=== PATIENT | female | born 1995 | race Two or more races ===

== ENCOUNTER 2019-09-04 20:54 | Emergency (ER) | payer SELFPAY ==
--- NOTE | ~2019-09-04 | XR_ITS ---
EXAMINATION: XR chest 2V 09/04/2019 22:06 INDICATION: Productive cough and fever PROCEDURE: 2 view chest COMPARISON: No prior studies for comparison. FINDINGS: The lungs are clear. The cardiomediastinal silhouette is within normal limits. There are no pleural effusions. There is no pneumothorax suspected. IMPRESSION: 1: NO ACUTE CARDIOPULMONARY DISEASE. Reviewed, dictated and finalized at location A.
[2019-09-04 20:56] VITALS: BP 123/73; PULSE 75; RESP 18; TEMP 36.8; O2SAT 99
--- NOTE | 2019-09-04 22:33 | ED.GENADULT ---
HPI - General Adult General Chief complaint: Upper Respiratory Infection Stated complaint: cough, fever Time Seen by Provider: 09/04/19 22:30 Source: patient and family Mode of arrival: ambulatory Limitations: no limitations History of Present Illness HPI narrative: Patient is a 24-year-old female with a history of asthma who presents for evaluation of cough, sinus congestion. Patient reports she has had intermittent upper respiratory infections over the past 3 months. She states that is been very hard for her to get well in between this, and most recently was diagnosed with influenza B 3 weeks ago. Patient has had a productive cough over the past week, sinus congestion. She denies fever or shortness of breath. Patient has been using her albuterol inhaler as prescribed. Patient continues to smoke cigarettes and use E cigarettes/vaping. Patient's mother states that she has been vaping numerous times a day. Patient denies any chest pain, no leg pain or swelling. Patient was was recently seen by her primary care provider, and advised that these were viral illnesses, no recent antibiotics. Related Data Allergies Allergy/AdvReac Type Severity Reaction Status Date / Time Penicillins Allergy Unknown UNKNOWN Verified 09/04/19 20:55 REACTION latex Allergy Hives Verified 09/04/19 20:55 Review of Systems Review of Systems: Narrative: CONSTITUTIONAL: Denies fever, chills, or sweats. ENT: Reports rhinorrhea, congestion, denies sore throat or ear pain CARDIOVASCULAR: Denies chest pain, palpitations, or edema. RESPIRATORY: Reports cough, denies shortness of breath GASTROINTESTINAL: Denies abdominal pain, nausea, vomiting, or diarrhea. GENITOURINARY: Denies dysuria or hematuria. SKIN: Denies rash or itching. MUSCULOSKELETAL: Denies back pain, joint pain, or myalgia. NEUROLOGIC: Denies headache, numbness, or weakness. PMFSH Past Medical History Medical History (Updated 09/04/19 @ 23:04 by Aubrie Heredia MD) Asthma Social History Social History (Updated 09/04/19 @ 23:03 by Aubrie Heredia MD) Smoking status: Current every day smoker Tobacco type: e-cigarettes Second hand tobacco smoke exposure: Yes Alcohol intake: never Substance use: never Living arrangements: with family Gender identity (if verbalized by the patient): Female Exam Narrative: Exam Narrative: GENERAL: Well-appearing, well-nourished, and in no acute distress. HEAD: Normocephalic, atraumatic. EYES: PERRLA and EOMI. ENT: Nares clear, no rhinorrhea or epistaxis. Mucous membranes moist. NECK: Supple. CHEST: Clear to auscultation. No respiratory distress. No wheezing. HEART: Regular rate and rhythm. No murmur heard. Normal peripheral pulses. ABDOMEN: Soft, nontender, nondistended, normal active bowel sounds. EXTREMITIES: Normal range of motion. No edema. SKIN: Warm, dry, no rash. NEURO: No focal deficits. Alert and oriented x3 Course Course Emergency Course: Patient presented for evaluation of continued cough, sinus congestion. Influenza and strep swabs are negative. Patient with abnormality to right middle lobe, possible early consolidation and air bronchograms are present. Will treat with azithromycin, also patient will be given prednisone and albuterol inhaler prescription. Patient advised the importance of stopping e-cigarette/vaping as this can further damage lung tissue and may lead to her symptoms in the first place. Patient seems to be in denial of this, stating that our literature is not correct and she is never heard about the negative effects of E cigarettes. I find this very hard to believe as does her patient's mother. Patient was discharged home in stable condition. Vital Signs Vital signs: Vital Signs Temperature 36.8 C 09/04/19 20:56 Pulse Rate 18 L 09/04/19 20:56 Respiratory Rate 18 09/04/19 20:56 Blood Pressure 123/73 09/04/19 20:56 Pulse Oximetry 99 09/04/19 20:56 Temperature 36.8 C 09/04/19 20:
[2019-09-04 23:33] VITALS: BP 122/82; PULSE 78; RESP 20; O2SAT 100
== END 2019-09-04 23:36 | disposition home or self-care (01) ==
PROVIDERS: Emergency Provider Emergency Medicine
DX: J45.909 Unspecified asthma, uncomplicated (principal); J06.9 Acute upper respiratory infection, unspecified; F17.290 Nicotine dependence, other tobacco product, uncomplicated
CPT/HCPCS: 71046; 87081; 87804; 87880; 99283

== ENCOUNTER 2022-08-26 01:22 | Emergency (ER) | payer OTHER, SELFPAY ==
--- NOTE | ~2022-08-26 | XR_ITS ---
Clinical Indication: Upper respiratory infection PA and lateral views of the chest: Comparison: 09/04/2019 Findings: The lungs are clear, without evidence of focal consolidation or pleural effusion. Cardiome diastinal silhouette is within normal limits. Bones and soft tissues are unremarkable. Impression: Normal chest. Reviewed, dictated and finalized at [facility]. [employer] Impression: Normal chest.
--- NOTE | ~2022-08-26 | CT_ITS ---
CT scan of the Neck Technique: 2.5 mm axial scans were obtained through the neck after intravenous administration of 75 c c Omnipaque 350. Coronal and sagittal reconstructions of the neck were obtained. Dose reduction techn ique was used on this scan by utilizing automated exposure control and iterative reconstruction techn ique. The dose-length product (DLP) was 420.55 mGy-cm. Clinical History: Sore throat, leukocytosis Findings: There is no evidence of any significant cervical lymphadenopathy. Several small, nonenlarged jugulo- digastric and posterior cervical lymph nodes are noted bilaterally. Parapharyngeal spaces appear norm al bilaterally. The parotid and submandibular glands appear normal. There is probable mild prominence/hypertrophy of the adenoids. [place] tonsils are unremarkable. The pharyngeal mucosal spaces appear normal. No soft tissue masses are seen in the neck. The thyroid gland appears normal. Images of the lung apices reveal no abnormalities. Impression: Mild prominence/hypertrophy of the adenoids. Correlate for tonsillitis. No abscess identified. Reviewed, dictated and finalized at location . E WINDER Impression: Mild prominence/hypertrophy of the adenoids. Correlate for tonsillitis. No absc ess identified.
[2022-08-26 01:29] VITALS: BP 111/80; PULSE 124; RESP 18; TEMP 36.4; O2SAT 98
--- NOTE | 2022-08-26 02:46 | ED.URI ---
HPI - URI/Sore Throat General Chief Complaint: Upper Respiratory Infection Stated Complaint: URI, N/V/D Time Seen by Provider: 08/26/22 02:23 Source: patient and RN notes reviewed Mode of arrival: ambulatory Limitations: no limitations History of Present Illness HPI Narrative: This is a 27 year old female who presents for evaluation of sickness. She states she developed sore throat, body aches, congestion yesterday. She also had nausea and vomiting. She had had a frontal headache and neck pain. She was evaluated in clinic today and she had negative covid, flu and strep. She has not taken any medication for her pain. Her child has also been sick Related Data Allergies Allergy/AdvReac Type Severity Reaction Status Date / Time Penicillins Allergy Unknown UNKNOWN Verified 08/26/22 04:42 REACTION latex Allergy Hives Verified 08/26/22 04:42 Review of Systems Constitutional: Constitutional: Reports chills, Reports fatigue, Reports fever(s) and Denies weakness ENT: Reports nasal congestion and Reports sore throat Cardiovascular: Cardiovascular: Denies syncope, Denies rapid heart rate, Denies irregular heart rhythm, Denies leg edema and Denies dyspnea Respiratory: Respiratory: Reports chest congestion, Reports cough, Denies hemoptysis, Denies excessive phlegm production and Denies dyspnea Gastrointestinal: Gastrointestinal: Denies abdominal pain, Denies hematochezia, Reports diarrhea, Reports nausea and Reports vomiting Genitourinary: Genitourinary: Denies hematuria and Denies dysuria Musculoskeletal: Musculoskeletal: Reports myalgias, Denies joint swelling, Denies loss of height and Denies muscle weakness Neurologic: Denies syncope, Reports headache(s), Denies focal weakness and Denies weakness PMFSH Past Medical History Medical History Asthma Social History Social History Smoking status: Current every day smoker Tobacco type: e-cigarettes/vaping Second hand tobacco smoke exposure: Yes Alcohol intake: never Substance use: never Living arrangements: with family Gender identity (if verbalized by the patient): Female Exam Const: General: no acute distress, alert and ill appearing (appears to not feel well, but nontoxic) Nutritional Appearance: well nourished Orientation/consciousness: patient oriented x3 HENMT: Head: normal to inspection Ears: external ears normal and TM's normal bilaterally Face and sinus: normal facial exam Mouth: Yes Normal oral and palatal mucosa present and Yes Abnormal oral and palatal mucosa present erythematous Teeth and gingiva: dentition normal Throat: posterior oropharynx normal and uvula midline Eyes: Conjunctivae: conjunctivae normal Pupils: Equal, round and reactive pupils present EOM: EOMs intact bilaterally Neck: Neck: normal visual inspection, no lymphadenopathy and no meningeal signs Chest: Chest palpation & inspection: normal inspection of the chest Resp: Effort & Inspection: normal respiratory effort Auscultation: clear to auscultation bilaterally Cardio: Rate: tachycardic Rhythm: regular rhythm Heart sounds: no murmurs GI: GI Palp: Yes Soft to palpation, No Tenderness to palpation present (GI), No Guarding due to palpation present (GI) and No Rigid due to palpation Auscultation: normal bowel sounds Back/Spine/Pelvis: Back: no CVA tenderness Skin: General skin exam: normal color Rashes: no rashes Wounds: no wounds Neuro: General: patient oriented x3, moves all extremities and CN's II-XI intact bilaterally Cranial nerves: Yes Nystagmus not present Speech: normal speech Gait exam (Neuro): Normal gait present Extrem: General: normal to inspection Psych: Mental Status: mental status grossly normal Affect: normal affect Attitude: cooperative Course Reevaluation(s) Reevaluation #1: PAtient states that she feels much better. Her
[2022-08-26] MEDS: SODIUM CHLORIDE 0.9% IV 1,000 ML 999 ML IV CONT ×2 (03:17→03:40)
[2022-08-26] MEDS: KETOROLAC 30 MG/ML VIAL (*BKC) IV PUSH (03:18)
[2022-08-26] MEDS: METOCLOPRAMIDE HCL INJ 10 MG/2 ML VIAL IV PUSH (03:18)
[2022-08-26 03:22] LABS: Basophils Absolute Auto 0.1 K/mm3 (0.0-0.1); Basophils Percent Auto 0.4 % (0.2-1.2); Eosinophils Absolute Auto 0.1 K/mm3 (0-0.3); Eosinophils Percent Auto 0.3 % (0-4.4); Hematocrit 40.2 % (37.0-47.0); Hemoglobin 13.5 g/dL (12.0-15.0); Immature Granulocyte Absolute 0.06 K/mm3 (0.00-0.031); Immature Granulocyte Percent A 0.3 % (0-0.5); Lymphocytes Absolute Auto 1.93 K/mm3 (0.9-3.2); Lymphocytes Percent Auto 10.1 % (18.3-44.2); Mean Corpuscular HGB Conc 33.6 g/dl (32-36); Mean Corpuscular Hemoglobin 29.6 pg (26-34); Mean Corpuscular Volume 88.2 fl (80-100); Mean Platelet Volume 9.8 fl (7.4-10.4); Monocytes Absolute Auto 1.8 K/mm3 (0.1-0.6); Monocytes Percent Auto 9.2 % (2.6-8.5); Neutrophils Absolute Auto 15.2 K/mm3 (1.3-6.7); Neutrophils Percent Auto 79.7 % (45.5-73.1); Platelet Count Result 265 k/mm3 (150-375); Red Blood Count 4.56 M/mm3 (4.2-5.4); Red Cell Distribution Width 13.2 % (11.5-14.5); White Blood Count 19.1 K/mm3 (4.5-10.0)
[2022-08-26] MEDS: diphenhydrAMINE HCl INJ 50 MG/ML VIAL 25 MG IV PUSH (03:31)
[2022-08-26 03:32] LABS: Alanine Aminotransferase 21 U/L (6-35); Albumin Level 5.1 g/dL (3.5-5.1); Alkaline Phosphatase 118 U/L (38-126); Anion Gap 15 mmol/L (8-16); Aspartate Amino Transferase 32 U/L (14-36); Bilirubin,Total 0.7 mg/dL (0.2-1.3); Blood Urea Nitrogen 8 mg/dL (7-17); Calcium 9.5 mg/dL (8.4-10.2); Carbon Dioxide 18 mmol/L (22-30); Chloride 99 mmol/L (98-107); Estimated CRCL calculation 116 ml/min; Estimated Glomerular Filt Rate > 60; Glucose 87 mg/dL (65-110); Lactic Acid Reflex 0.7 mmol/L (0.7-2.0); Magnesium 1.7 mg/dL (1.6-2.3); Potassium 3.7 mmol/L (3.4-5.0); Sodium 132 mmol/L (137-145)
[2022-08-26 03:50] LABS: Appearance Urine Clear (Clear); Bacteria Urine Rare /hpf; Bilirubin Urine Negative (Negative); Blood Urine Negative (Negative); Color Urine Yellow (Yellow); Glucose Urine UA Negative (Negative); Ketones Urine 4+ mg/dL (Negative); Leukocyte Esterase Ur Negative LEU/UL (Negative); Nitrate Urine Negative (Negative); Protein Urine 1+ mg/dL (Negative); RBC Urine 0-2 /hpf (0-2); Specific Grav Ur 1.028 (1.001-1.035); Squamous Epithelial Cell Urine Few /hpf (Few); WBC Urine 0-5 /hpf; pH Urine 5.5 (5.0-9.0)
[2022-08-26 03:57] LABS: Strep Group A RT-PCR NOT DETECTED (Negative)
[2022-08-26 03:57] LABS: Add Urine Microscopic? YES
[2022-08-26 04:08] LABS: Influenza A QL RT-PCR Negative (Negative); Influenza B QL RT-PCR Negative (Negative); RSV RNA, RT-PCR Negative (Negative); SARS-CoV-2 RNA PCR Negative
[2022-08-26 04:10] LABS: Monoscreen Negative (Negative); Negative Monotest Control Negative (Negative); Positive Monotest Control Positive (Positive)
[2022-08-26 04:57] VITALS: BP 99/67; PULSE 94; RESP 16; O2SAT 100
[2022-08-26 06:47] VITALS: BP 95/65; PULSE 85; RESP 16; O2SAT 100
== END 2022-08-26 08:09 | disposition home or self-care (01) ==
PROVIDERS: Emergency Provider General Practice
DX: J02.9 Acute pharyngitis, unspecified (principal); E86.0 Dehydration; J45.909 Unspecified asthma, uncomplicated; Z79.51 Long term (current) use of inhaled steroids; Z20.822 Contact with and (suspected) exposure to COVID-19; F17.290 Nicotine dependence, other tobacco product, uncomplicated
CPT/HCPCS: 36415; 70491; 71046; 80053; 81001; 81025; 83605; 83735; 85025; 86308; 87637; 87651; 96361; 96374; 96375; 99284; J1200; J1885; J2765; J7030; Q9967

== ENCOUNTER 2023-06-26 13:47 | Emergency (ER) | payer OTHER, SELFPAY ==
[2023-06-26 13:54] VITALS: BP 103/52; PULSE 90; RESP 18; TEMP 36.7; O2SAT 99
[2023-06-26 14:46] LABS: Influenza A QL RT-PCR Negative (Negative); Influenza B QL RT-PCR Negative (Negative); RSV RNA, RT-PCR Negative (Negative); SARS-CoV-2 RNA PCR Negative (Negative)
--- NOTE | 2023-06-26 15:06 | ED.GENADULT ---
HPI - General Adult General Chief complaint: Upper Respiratory Infection Stated complaint: uri Time Seen by Provider: 06/26/23 14:45 History of Present Illness HPI narrative: 28-year-old female presenting to the emergency department for evaluation of sore throat cough is been ongoing for the last few days. Patient does have sick contacts at home. Patient reports he did have recent testing for COVID and was negative. Patient denies any chest pain or shortness of breath but does report sore throat. Patient denies any difficulty breathing or swelling. Patient appears to be in no distress in the ED. Related Data Allergies Allergy/AdvReac Type Severity Reaction Status Date / Time Penicillins Allergy Unknown UNKNOWN Verified 08/26/22 04:42 REACTION latex Allergy Hives Verified 08/26/22 04:42 Review of Systems Review of Systems: All systems reviewed & are unremarkable except as noted in HPI and below PMFSH Past Medical History Medical History Asthma Social History Social History Smoking status: Current every day smoker Tobacco type: e-cigarettes/vaping Second hand tobacco smoke exposure: Yes Alcohol intake: never Substance use: never Living arrangements: with family Gender identity (if verbalized by the patient): Female Exam Narrative: APPEARANCE: Well appearing, no pain, no distress, well-nourished. HEAD: normocephalic, atraumatic. EYES: PERRLA/EOMI, conjunctivae clear. NOSE: Normal no drainage EARS:TMS clear with good light reflex. THROAT: Erythema posterior pharynx with no swelling or deformity NECK: Supple. No adenopathy, no masses. RESPIRATORY: Airway patent, respirations nonlabored. Clear to auscultation bilaterally, no rales, rhonchi, wheezing. CARDIOVASCULAR: Regular rate and rhythm without murmurs rubs or gallops. ABDOMINAL: Soft, nontender, nondistended, normal bowel sounds MUSCULOSKELETAL: Moves all extremities. Strength/ROM intact, No edema, No calf tenderness. NEURO: Alert. Cranial nerves II through XII intact. Course Course Emergency Course: 28- year-old female presenting to the emergency department for evaluation of sore throat. Patient was negative for RSV COVID influenza and strep. Patient was obtained results of her workup. Patient was advised on symptomatic treatment for home. All questions concerns were addressed patient was well-appearing at time of discharge. Vital Signs Vital signs: Vital Signs Temperature 98.1 F 06/26/23 13:54 Pulse Rate 90 06/26/23 13:54 Respiratory Rate 18 06/26/23 13:54 Blood Pressure 103/52 L 06/26/23 13:54 Pulse Oximetry 99 06/26/23 13:54 Temperature 98.1 F 06/26/23 13:54 Pulse Rate 90 06/26/23 13:54 Respiratory Rate 18 06/26/23 13:54 Blood Pressure 103/52 L 06/26/23 13:54 Pulse Oximetry 99 06/26/23 13:54 Oxygen Delivery Room Air 06/26/23 14:22 Medical Decision Making Vital Signs Vital Signs: Vital Signs Temperature 98.1 F 06/26/23 13:54 Pulse Rate 90 06/26/23 13:54 Respiratory Rate 18 06/26/23 13:54 Blood Pressure 103/52 L 06/26/23 13:54 Pulse Oximetry 99 06/26/23 13:54 Temperature 98.1 F 06/26/23 13:54 Pulse Rate 90 06/26/23 13:54 Respiratory Rate 18 06/26/23 13:54 Blood Pressure 103/52 L 06/26/23 13:54 Pulse Oximetry 99 06/26/23 13:54 Oxygen Delivery Room Air 06/26/23 14:22 Lab Data Lab results reviewed: Yes I reviewed the patient's lab results. Labs: Lab Results 06/26/23 06/26/23 Range/Units 14:02 15:12 Influenza A (RT-PCR) Negative (Negative) Influenza B (RT-PCR) Negative (Negative) RSV (RT-PCR) Negative (Negative) SARS-CoV-2 RNA (RT-PCR) Negative (Negative) Group A Strep (PCR) Not detected (Negative) Discharge Plan Discharge Clinical Impression: Upper respiratory infection, Pharyngiti
[2023-06-26 15:48] LABS: Strep Group A RT-PCR NOT DETECTED (Negative)
== END 2023-06-26 15:58 | disposition home or self-care (01) ==
PROVIDERS: Emergency Provider Emergency Medicine
DX: J06.9 Acute upper respiratory infection, unspecified (principal); J02.9 Acute pharyngitis, unspecified; Z20.822 Contact with and (suspected) exposure to COVID-19; J45.909 Unspecified asthma, uncomplicated; F17.290 Nicotine dependence, other tobacco product, uncomplicated
CPT/HCPCS: 87637; 87651; 99283

== ENCOUNTER 2024-11-09 07:24 | Emergency (ER) | payer OTHER, SELFPAY ==
--- NOTE | ~2024-11-09 | CT_ITS ---
EXAMINATION: CT abdomen pelvis w con DATE: 11/09/2024 08:21 INDICATION: Epigastric and right upper quadrant pain TECHNIQUE: Computed tomography (CT) of the abdomen and pelvis was performed with 100 cc Omnipaque 350 intravenous contrast. The dose-length product was 170.77 mGy-cm. Automated exposure control and iter ative reconstruction technique were employed. COMPARISON: None. FINDINGS: Lung bases unremarkable. No significant pleural or pericardial effusion. Heart size normal. The liver, spleen, pancreas, adrenal glands and kidneys are unremarkable. Gallbladder is contracted. Nonobstructive bowel gas pattern. Small amount of free fluid in the pelvis. There are mildly promine nt parametrial vessels within surrounding the uterus, suspicious for pelvic congestion syndrome. No f ree air. No acute bone or joint abnormality. No focal lytic or blastic lesions. IMPRESSION: 1. Dilated parametrial vessels, suspicious for pelvic congestion syndrome. Reviewed, dictated and finalized at location A.
--- NOTE | ~2024-11-09 | US_ITS ---
US abdomen limited INDICATION: Epigastric and right upper quadrant pain PROCEDURE: Realtime right upper abdominal ultrasound. COMPARISON: No prior studies for comparison. FINDINGS: The pancreas is normal without focal mass or pancreatic ductal dilation. Liver echotexture is normal without focal mass or intrahepatic biliary dilatation. There is normal directional flow i n the portal vein. The gallbladder is normal without stones, gallbladder wall thickening or pericholecystic fluid. Comm on bile duct measures 2 mm. No sonographic Campos's sign. IMPRESSION: 1: Normal limited abdominal ultrasound. Reviewed, dictated and finalized at location A.
--- OUTSIDE RECORDS SUMMARY | 2024-11-09 07:28 | XMS_ITS | Clinical Summary ---
Author Organization [facility] Address [address] [place] [address] Care Team Providers Care Condenser Cleaner Name Role Phone Bonifacio Sims MD Unavailable Ethan De Jesus MD Primary Care Provider [phone] Allergies Active Allergy Reactions Criticality Noted Date Comments Latex Itching,Rash Medium 06/23/2017 Mushroom Anaphylaxis,Hives High 06/29/2013 ALL MUSHROOM TYPES Penicillins Medications albuterol HFA (PROVENTIL HFA,VENTOLIN HFA,PROAIR HFA) 90 mcg/actuation inhaler Inhale 2 puffs every 4 (four) hours as needed for wheezing. 1 Inhaler 06/11/20 18 Active vitamin ferrous fumarate-folic 28 mg iron- 800 mcg tablet 28 mg iron-800 mcg tablet TAKE 1 TABLET BY MOUTH NIGHTLY Active busPIRone (BUSPAR) 10 mg tablet buspirone 10 mg tablet Active compress.stocking, knee,reg,med miscIndications:Or thostatic Hypotension,ICD 10 I95.1 WEAR WHILE UP AND MOBILE; REMOVE AT BED TIME 1 each 3 11/08/19 22 Active docusate sodium (COLACE) 100 mg capsuleIndications :constipation,Stoo l Softener Take 1 capsule (100 mg total) by mouth 2 (two) times a day as needed for constipation 30 capsule 1 02/06/20 22 Active ibuprofen (ADVIL,MOTRIN) 600 mg tabletIndications: Cramps Take 1 tablet (600 mg total) by mouth every 6 (six) hours as needed for pain 30 tablet 1 02/06/20 22 Active ondansetron ODT (ZOFRAN-ODT) 4 mg disintegrating tablet Take 1 tablet (4 mg total) by mouth every 8 (eight) hours as needed for nausea or vomiting 10 tablet 06/22/20 22 Active butalbital-acetami nophen-caffeine (ESGIC) 50-325-40 mg per tabletIndications: Unilateral headache Take 1 tablet by mouth every 6 (six) hours as needed for headaches Collaborating physician Deandre Scott MD 12 tablet 07/14/19 25 Active methocarbamoL (ROBAXIN) 500 mg tabletIndications: Cervical radiculopathy Take 1 tablet (500 mg total) by mouth 3 (three) times a day Take as directed to relax muscles. Collaborating physician Deandre Scott MD 20 tablet 07/14/19 25 Active naproxen (NAPROSYN) 375 mg tabletIndications: Unilateral headache,Cervical radiculopathy Take 1 tablet (375 mg total) by mouth 2 (two) times a day with meals Take as directed to treat headache and neck pain. Collaborating physician Deandre Scott MD 20 tablet 07/14/19 25 Active Active Problems Problem Noted Date Diagnosed Date Laceration of skin of thumb 07/14/2024 Unilateral headache 07/14/2024 Cervical radiculopathy 07/14/2024 Orthostatic hypotension 11/07/2021 Localized edema 11/07/2021 Muscle strain of right shoulder region 9 Immunizations Immunization Administration Dates Next Due Tdap 07/14/2024() Surgical History Surgery Date Site/Laterality Comments NO PAST SURGERIES TONSILECTOMY, ADENOIDECTOMY, BILATERAL MYRINGOTOMY AND TUBES Medical History Medical History Date Comments Migraine Asthma Covid-19 twice Family History Medical History Relation Name Comments Hypertension Father No Known Problems Maternal Grandfather No Known Problems Maternal Grandmother Diabetes Mother No Known Problems Paternal Grandfather No Known Problems Paternal Grandmother Relation Name Status Comments Father Maternal Grandfather Maternal Grandmother Mother Paternal Grandfather Paternal Grandmother Social History Tobacco Use Types Packs/Day Years Used Date Smoking Tobacco: Former Smokeless Tobacco: Never Tobacco Cessation:Counseling Given: Not Answered Comments:e cig Alcohol Use Standard Drinks/Week Comments Not Currently 0 (1 standard drink = 0.6 oz pur e alcohol) socially AUDIT-C Answer Date Recorded Q1: How often do you have a drink containing alcohol? Never 02/03/2022 Q2: How many drinks containi ng alcohol do you have on a typical day when you are drinking? Patient does not drink Q3: How often do you have si x or more drinks on one occasion? Never 02/03/2022 Personal Safety Answer Date Recorded Have you ever been in or are you currently in a harmful physical or emotional relationship or is someone making you feel afraid or unsafe? Denies 07/14/2024 Comments No Sex and Gender Information Value Date Recorded Sex Assigned at Not on file Legal Sex Female 6:46 PM TAP PULLER Gender Identity Not on file Sexual Orientation Not on file Obstetrics History Para Term AB IAB SAB Ectopic Multiple Livin g Live Births 3 1 1 2 0 1 1 Date Outcome GA Total Labor Labor/2nd/3rd Weight Sex Type Anes PTL Cinda A1 A5 Name Clin AB AB 2021 Term 40w 6d 1h 01m 0h 12m/0h 40m/0h 09m 3.356 kg (7 lb 6.4 oz) F Vag-S pont Local N Livin g 8 9 ADDISON ,GIRL DIOR montgomery, Bonifacio mitchell MD Complications:None Delivery Location:[facility] Last Filed Vital Signs Vital Sign Reading Time Taken Comments Blood Pressure 102/63 07/14/2024 10:06 AM TAP PULLER Pulse 62 07/14/2024 10:06 AM TAP PULLER Temperature 36.6 C (97.9 F) 07/14/2024 10:06 AM TAP PULLER Respiratory Rate 16 07/14/2024 7:53 AM TAP PULLER Oxygen Saturation 100% 07/14/2024 10:06 AM TAP PULLER Inhaled Oxygen Concentration - - Weight 52.2 kg (115 lb) 07/14/2024 7:53 AM TAP PULLER Height 172.7 cm (5' 8 ) 07/14/2024 7:53 AM TAP PULLER Body Mass Index 17.49 07/14/2024 7:53 AM TAP PULLER Plan of Treatment Health Maintenance Due Date Last Done Comments Cervical Cancer Screening 1995 Depression Screening 1995 Hepatitis C Screening 1995 Varicella Vaccines (2 of 2 - 2-dose childhood series) 1999 08/02/1996 Regular Well Visit/Exam 18-64 2013 Pneumococcal vaccine <65 (1 of 2 - PCV) 2014 DTaP/Tdap/Td Vaccine (7 - Td or Tdap) 11/25/2016 11/25/2006, 12/27/1999, 10/14/1996, Additional history exists Influenza Vaccine (#1) 2024 Hepatitis B Screening Completed 02/15/1996 , 1995, 1995 HPV Vaccines Completed 04/20/2012, 04/30, 03/18/2010 Insurance [facility] IDPA IDPA Advance Directives For more information, please contact: [phone] * Full Code (Latest Code Status on File) Date Activated Date Inactivated Comments 02/04/2022 5:58 AM 02/06/2022 8:32 PM * Full Code Date Activated Date Inactivated Comments 02/03/2022 6:06 AM 02/04/2022 5:58 AM Full CPR in ca se of cardiopulmonary arrest Care Teams Condenser Cleaner Relationship Specialty Start Date End Date Ethan De Jesus MD [address] [place] [address] [address] [place] [address] PCP - General Family Medicine 07/14/24 Bonifacio Sims MD [address] [place] [address] [address] [place] [address] Corporate Consultant Obstetrics and Gynecology 02/05/22
--- OUTSIDE RECORDS SUMMARY | 2024-11-09 07:28 | XMS_ITS | Clinical Summary ---
Author Organization [facility] Address [address] [place] [address] Phone Care Team Providers Care [employer] Biology Teacher Name Role Phone Unavailable Primary Care Provider Unavailabl e Allergies Active Allergy Reactions Criticality Noted Date Comments Latex Rash Low 06/10/2019 Penicillins Swelling Low 06/10/2019 Medications estradiol cypionate (DEPO-ESTRADIOL IM) Inject by intramuscular injection. Active nitrofurantoin macrocrystal (MACRODANTIN) 100 mg Capsule Take 100 mg by mouth 4 times daily with meals and at bedtime. Active traZODone (DESYREL) 100 mg tablet Take 100 mg by mouth daily at bedtime. Active busPIRone (BUSPAR) 10 mg tablet Take 10 mg by mouth 3 times daily. Active hydrOXYzine HCL (ATARAX) 25 mg tablet Take 25 mg by mouth 2 times daily. Active polyethylene glycol 3350 (MIRALAX) 17 gram/dose Powder Take 1 Scoop (17 Grams) by mouth daily. Dissolve in 8 ounces of fluid and drink entire liquid 527 Gram 07/28/19 24 Active simethicone 80 mg Tablet, Chewable Take 1 Tablet (80 mg) by mouth every 6 hours as needed for Gas. 30 Tablet 07/28/19 24 Active Social History Tobacco Use Types Packs/Day Years Used Date Smoking Tobacco: Every Day Smokeless Tobacco: Never Alcohol Use Standard Drinks/Week Comments Yes 0 (1 standard drink = 0.6 oz pur e alcohol) occassionally Feeling Safe Answer Date Recorded Are you in a relationship wi th someone who hurts you emotionally and/or physically? No 07/27/2023 Comments Unknown Sex and Gender Information Value Date Recorded Sex Assigned at Not on file Legal Sex Female 2:48 PM MAMMA LOGIST Gender Identity Not on file Sexual Orientation Not on file Last Filed Vital Signs Vital Sign Reading Time Taken Comments Blood Pressure 109/68 07/28/2023 12:38 AM MAMMA LOGIST Pulse 81 07/28/2023 12:50 AM MAMMA LOGIST Temperature 36.9 C (98.4 F) 07/27/2023 7:43 PM MAMMA LOGIST Respiratory Rate 19 07/28/2023 12:50 AM MAMMA LOGIST Oxygen Saturation 100% 07/28/2023 12:50 AM MAMMA LOGIST Inhaled Oxygen Concentration - - Weight 54 kg (119 lb) 07/27/2023 7:43 PM MAMMA LOGIST Height 170.2 cm (5' 7 ) 07/27/2023 7:43 PM MAMMA LOGIST Body Mass Index 18.64 07/27/2023 7:43 PM MAMMA LOGIST Plan of Treatment Health Maintenance Due Date Last Done Comments DTAP/TDAP/TD VACCINES (1 - Tdap) 2014 HEPATITIS B VACCINES (1 of 3 - 19+ 3-dose series) 2014 CERVICAL CANCER SCREENING 2016 HPV/Cotest (21-29) 2016 PAP SMEAR 2016 INFLUENZA VACCINE (#1) 2024 HPV VACCINES Aged Out No longer eligi ble based on patient's age to complete this topic Insurance [facility] MEDICAID
--- OUTSIDE RECORDS SUMMARY | 2024-11-09 07:28 | XMS_ITS | Encounter Summary ---
Author Organization [facility] Healthcare Address [address] [place] [address] Care Team Providers Care Postdoctoral Scientist Name Role Phone Naima Larson MD Primary Care Provider [phone] Unknown, Notinfile Primary Care Provider Unavail able No, Physician Primary Care Provider [phone] Unknown, Notinfile Primary Care Provider Unavail able Bonifacio Sims MD Unavailable [phone] Ethan Pan MD Primary Care Provider [phone] Unknown, Notinfile Primary Care Provider Unavail able Ethan De Jesus MD Primary Care Provider [phone] Encounter Details Date Type Department Care Team (Late st Contact Info) Description 08/18/2019 Telephone [facility] [address] [place] [address] Enmanuel Reyes MD [address] [place] [address] DR KINNEY B [facility] [address] [place] [address] Social History Tobacco Use Types Packs/Day Years Used Date Smoking Tobacco: Some Days Smokeless Tobacco: Never Comments:e cig Alcohol Use Standard Drinks/Week Comments Yes 0 (1 standard drink = 0.6 oz pur e alcohol) socially Comments No Sex and Gender Information Value Date Recorded Sex Assigned at Not on file Legal Sex Female 6:46 PM APPLICATION INTEGRATION ENGINEER Gender Identity Not on file Sexual Orientation Not on file documented as of this encounter Plan of Treatment Not on file documented as of this encounter Visit Diagnoses Not on filedocumented in this encounter Additional Health Concerns Infection Onset Date Last Indicated Resolved Time COVID: Suspected 11/14/2021 11/14/2021 11/14/2021 3:24 PM CDT COVID: Suspected 06/21/2022 06/21/2022 06/22/2022 12:28 AM APPLICATION INTEGRATION ENGINEER COVID19 06/21/2022 06/21/2022 07/01/2022 3:05 AM APPLICATION INTEGRATION ENGINEER COVID: Suspected 08/30/2023 08/30/2023 08/30/2023 5:19 PM APPLICATION INTEGRATION ENGINEER documented as of this encounter Care Teams Postdoctoral Scientist Relationship Specialty Start Date End Date Naima Larson MD [address] [facility] [address] NIRMAL Alfaro [address] [address] PCP - General 06/15/19 09/09/21 Unknown, Notinfile PCP - General 09/10/21 11/06/21 No, Physician PCP - General 11/07/21 11/13/21 Unknown, Notinfile PCP - General 11/14/21 08/29/23 Ethan Pan MD [address] [place] [address] [place] [address] PCP - General Family Medicine 08/30/23 03/31/24 Unknown, Notinfile PCP - General 04/01/24 07/13/24 Ethan De Jesus MD [address] [place] [address] [place] [address] PCP - General Family Medicine 07/14/24 Bonifacio Sims MD [address] [place] [address] [address] NIRMAL [address] [place] [address] Gear [facility] Obstetrics and Gynecology 02/05/22 documented as of this encounter
--- OUTSIDE RECORDS SUMMARY | 2024-11-09 07:28 | XMS_ITS | Clinical Summary ---
Author Organization [facility] Address [address] [place] [address] Phone Care Team Providers Care Recreation Facilities Supervisor Name Role Phone Provider, None Primary Care Provider Unavailabl e Allergies Active Allergy Reactions Criticality Noted Date Comments Latex Itching 06/23/2017 Mushroom Extract Complex (Obsolete) Anaphylaxis 08/19/2021 ALL MUSHROOM TYPES Penicillins Unknown 01/10/2016 Medications triamcinolone (KENALOG) 0.1 % Cream Apply 1 Tube 3 times daily. Apply thin film to affected area(s) twice daily until healed. 15 g 0 6 Active lurasidone (LATUDA) 40 MG Tablet Take 1 Tablet by mouth daily after dinner. Take lurasidone with a meal containing at least 350 calories to allow for proper absorption. 30 Tablet 2 Active Vit-Fe Fumarate-FA ( multivitamin) 27-0.8 MG Tablet Take 1 Tablet by mouth nightly. 30 Tablet 2 Active busPIRone (BUSPAR) 10 MG Tablet Take 10 mg by mouth 3 times daily. Active hydrOXYzine (ATARAX) 25 MG Tablet Take 25 mg by mouth every 8 hours as needed for Anxiety. Active methylPREDNISol one (MEDROL DOSPACK) 4 MG Tablet Therapy Pack See product package insert for dosing schedule 21 Tablet 4 Active cyclobenzaprine (FLEXERIL) 5 MG Tablet Take 1 Tablet by mouth 3 times daily as needed for Muscle spasms. 15 Tablet 4 Active ketorolac (TORADOL) 10 MG Tablet Take 1 Tablet by mouth every 6 hours as needed for Mild or more severe pain. 15 Tablet Active Active Problems Problem Noted Date Diagnosed Date Bipolar affective disorder, current episode depr essed 08/18/2021 Family History Medical History Relation Name Comments Bipolar Disorder Father Schizophrenia Father Relation Name Status Comments Father Social History Tobacco Use Types Packs/Day Years Used Date Smoking Tobacco: Never Smokeless Tobacco: Never Alcohol Use Standard Drinks/Week Comments Yes 0 (1 standard drink = 0.6 oz pur e alcohol) Ocassionaly Comments No Sex and Gender Information Value Date Recorded Sex Assigned at Not on file Legal Sex Female 9:50 PM CDT Gender Identity Not on file Sexual Orientation Not on file Last Filed Vital Signs Vital Sign Reading Time Taken Comments Blood Pressure 110/84 12/25/2023 10:05 PM CDT Pulse 65 12/25/2023 10:05 PM CDT Temperature 36.7 C (98.1 F) 12/25/2023 8:17 PM CDT Respiratory Rate 18 12/25/2023 10:05 PM CDT Oxygen Saturation 100% 12/25/2023 10:05 PM CDT Inhaled Oxygen Concentration - - Weight 56.7 kg (125 lb) 12/25/2023 8:17 PM CDT Height 172.7 cm (5' 8 ) 12/25/2023 8:17 PM CDT Body Mass Index 19.01 12/25/2023 8:17 PM CDT Plan of Treatment Health Maintenance Due Date Last Done Comments Pap Smear 2016 Influenza Immunization (#1) 2024 SARS-COV-2 Immunization ( season) 2024 Respiratory Syncytial Virus (RSV) Immunization (Adult) (1 - 1-dose 75+ series) 2070 Hepatitis B Immunization Completed 996, 1995, 1995 DTaP/Tdap/Td Immunization Discontinued 2006, 12/27/1999, 10/14/1996, Additional history exists TdaP Immunization Completed 11/25/2006 Human Papillomavirus (HPV) Immunization Discontinued 04/20/2012, 05/20/2010, 03/18/2010 Meningococcal Immunization (ACWY) Completed 04/20/2012 Hepatitis C Virus (HCV) Screening Completed 06/20/2021 Pneumococcal Immunization Combined Aged Out No longer eligible based on patient's age to complete this topic Rotavirus Immunization Aged Out No lo nger eligible based on patient's age to complete this topic Insurance MEDICAID AETNA [facility] Advance Directives * Full Code (Latest Code Status on File) Date Activated Date Inactivated Comments 08/18/2021 9:20 AM 08/22/2021 4:53 PM CPR-Full Jamil atment: FULL ARREST: Attempt Resuscitation/CPR wit intubation and mechanical ventilation. PRE-ARREST: Use entire range of life support measures to stabilize the patient. Care Teams Recreation Facilities Supervisor Relationship Specialty Start Date End Date Provider, None [place] PCP - General 01/11/16
--- OUTSIDE RECORDS SUMMARY | 2024-11-09 07:28 | XMS_ITS | Referral Summary ---
Author Organization [facility] Address [address] [place] [address] Care Team Providers Care Implementation Analyst Name Role Phone Bonifacio Sims MD Unavailable [phone] Ethan De Jesus MD Primary Care Provider [phone] Allergies Active Allergy Reactions Criticality Noted Date [...] Immunization Administration Dates Next Due Tdap 07/14/2024() Social History Tobacco Use Types Packs/Day Years [...] on file Legal Sex Female 6:46 PM SUPERVISOR COMPOUNDING AND FINISHING Gender Identity Not on file Sexual Orientation Not on file Last Filed Vital Signs Vital Sign Reading Time Taken Comments Blood Pressure 102/63 07/14/2024 10:06 AM SUPERVISOR COMPOUNDING AND FINISHING Pulse 62 07/14/2024 10:06 AM SUPERVISOR COMPOUNDING AND FINISHING Temperature 36.6 C (97.9 F) 07/14/2024 10:06 AM SUPERVISOR COMPOUNDING AND FINISHING Respiratory Rate 16 07/14/2024 7:53 AM SUPERVISOR COMPOUNDING AND FINISHING Oxygen Saturation 100% 07/14/2024 10:06 AM SUPERVISOR COMPOUNDING AND FINISHING Inhaled Oxygen Concentration - - Weight 52.2 kg (115 lb) 07/14/2024 7:53 AM SUPERVISOR COMPOUNDING AND FINISHING Height 172.7 cm (5' 8 ) 07/14/2024 7:53 AM SUPERVISOR COMPOUNDING AND FINISHING Body Mass Index 17.49 07/14/2024 7:53 AM SUPERVISOR COMPOUNDING AND FINISHING Plan of Treatment Not on file Insurance [facility] AETNA [facility] IDPA IDPA Advance Directives For more information, please contact: [phone] * Full Code (Latest Code Status on File) Date Activated Date Inactivated Comments 02/04/2022 5:58 AM 02/06/2022 8:32 PM * Full Code Date Activated Date Inactivated Comments 02/03/2022 6:06 AM 02/04/2022 5:58 AM Full CPR in ca se of cardiopulmonary arrest Care Teams Implementation Analyst Relationship Specialty Start Date End Date Ethan De Jesus MD Aida [facility] [address] [place] [address] PCP - General Family Medicine 07/14/24 Bonifacio Sims MD [address] [facility] [address] NIRMAL [address] [place] [address] Pulmonary Fellow Obstetrics and Gynecology 02/05/22
[2024-11-09 07:30] VITALS: BP 129/90; PULSE 104; RESP 18; TEMP 36.8; O2SAT 100
[2024-11-09 07:53] LABS: BEDSIDEPREGUCG Negative (Negative)
[2024-11-09 07:56] LABS: Basophils Percent Auto 0.6 % (0.2-1.2); Eosinophils Absolute Auto 0.2 K/mm3 (0-0.3); Eosinophils Percent Auto 3.2 % (0-4.4); Hematocrit 38.8 % (37.0-47.0); Hemoglobin 12.8 g/dL (12.0-15.0); Immature Granulocyte Absolute 0.01 K/mm3 (0.00-0.031); Immature Granulocyte Percent A 0.2 % (0-0.5); Lymphocytes Absolute Auto 1.34 K/mm3 (0.9-3.2); Lymphocytes Percent Auto 21.6 % (18.3-44.2); Mean Corpuscular Hemoglobin 29.8 pg (26-34); Mean Corpuscular Volume 90.2 fl (80-100); Mean Platelet Volume 10.2 fl (7.4-10.4); Monocytes Absolute Auto 0.9 K/mm3 (0.1-0.6); Monocytes Percent Auto 14.9 % (2.6-8.5); Neutrophils Absolute Auto 3.7 K/mm3 (1.3-6.7); Neutrophils Percent Auto 59.5 % (45.5-73.1); Platelet Count Result 348 k/mm3 (150-375); Red Cell Distribution Width 12.8 % (11.5-14.5); White Blood Count 6.2 K/mm3 (4.5-10.0)
--- OUTSIDE RECORDS SUMMARY | 2024-11-09 07:57 | XMS_ITS | Clinical Summary ---
Author Organization [facility] Address [address] [place] [address] Phone Care Team Providers Care Oven Operator Name Role Phone Provider, None Primary Care [...] to complete this topic Insurance MEDICAID AETNA [facility] Advance Directives * Full Code (Latest Code Status on File) Date Activated Date Inactivated Comments 08/18/2021 9:20 AM 08/22/2021 4:53 PM CPR-Full Jamil atment: FULL ARREST: Attempt Resuscitation/CPR wit intubation and mechanical ventilation. PRE-ARREST: Use entire range of life support measures to stabilize the patient. Care Teams Oven Operator Relationship Specialty Start Date End Date Provider, None [place] PCP - General 01/11/16
--- OUTSIDE RECORDS SUMMARY | 2024-11-09 07:57 | XMS_ITS | Encounter Summary ---
Author Organization [facility] Healthcare Address [address] [place] [address] Care Team Providers Care Cleaner Carpet And Upholstery Name Role Phone Naima Larson MD Primary Care Provider [phone] Unknown, Notinfile Primary Care Provider Unavail able No, Physician Primary Care Provider [phone] Unknown, Notinfile Primary Care Provider Unavail able Bonifacio Sims MD Unavailable [phone] Ethan Pan MD Primary Care Provider [phone] Unknown, Notinfile Primary Care Provider Unavail able Ethan De Jesus MD Primary Care Provider [phone] Encounter Details Date Type Department Care Team (Late st Contact Info) Description 08/18/2019 Telephone [facility] Diagnostic Imaging [address] [place] [address] Enmanuel Reyes MD [address] [place] [address] [address] KINNEY [address] [facility] [address] [place] [address] Social History Tobacco Use Types Packs/Day Years Used Date Smoking Tobacco: Some Days Smokeless Tobacco: Never Comments:e cig Alcohol Use Standard Drinks/Week Comments Yes 0 (1 standard drink = 0.6 oz pur e alcohol) socially Comments No Sex and Gender Information Value Date Recorded Sex Assigned at Not on file Legal Sex Female 6:46 PM PLANT CARE WORKER Gender Identity Not on file Sexual Orientation Not on file documented as of this encounter Plan of Treatment Not on file documented as of this encounter Visit Diagnoses Not on filedocumented in this encounter Additional Health Concerns Infection Onset Date Last Indicated Resolved Time COVID: Suspected 11/14/2021 11/14/2021 11/14/2021 3:24 PM CDT COVID: Suspected 06/21/2022 06/21/2022 06/22/2022 12:28 AM PLANT CARE WORKER COVID19 06/21/2022 06/21/2022 07/01/2022 3:05 AM PLANT CARE WORKER COVID: Suspected 08/30/2023 08/30/2023 08/30/2023 5:19 PM PLANT CARE WORKER documented as of this encounter Care Teams Cleaner Carpet And Upholstery Relationship Specialty Start Date End Date Naima Larson MD [address] [facility] [address] NIRMAL Alfaro [address] [address] PCP - General 06/15/19 09/09/21 Unknown, Notinfile PCP - General 09/10/21 11/06/21 No, Physician PCP - General 11/07/21 11/13/21 Unknown, Notinfile PCP - General 11/14/21 08/29/23 Ethan Pan MD [address] [place] [address] [place] [address] PCP - General Family Medicine 08/30/23 03/31/24 Unknown, Notinfile PCP - General 04/01/24 07/13/24 Ethan De Jesus MD [address] [place] [address] [place] [address] PCP - General Family Medicine 07/14/24 Bonifacio Sims MD [address] [place] [address] [address] NIRMAL [address] [place] [address] Sheet Metal Layout Mechanic Obstetrics and Gynecology 02/05/22 documented as of this encounter
--- OUTSIDE RECORDS SUMMARY | 2024-11-09 07:57 | XMS_ITS | Clinical Summary ---
Author Organization [facility] Address [address] [place] [address] Phone Care Team Providers Care Disabilities Caregiver Name Role Phone Unavailable Primary Care Provider [...] on file Legal Sex Female 2:48 PM POWER WHEELCHAIR MECHANIC Gender Identity Not on file Sexual Orientation Not on file Last Filed Vital Signs Vital Sign Reading Time Taken Comments Blood Pressure 109/68 07/28/2023 12:38 AM POWER WHEELCHAIR MECHANIC Pulse 81 07/28/2023 12:50 AM POWER WHEELCHAIR MECHANIC Temperature 36.9 C (98.4 F) 07/27/2023 7:43 PM POWER WHEELCHAIR MECHANIC Respiratory Rate 19 07/28/2023 12:50 AM POWER WHEELCHAIR MECHANIC Oxygen Saturation 100% 07/28/2023 12:50 AM POWER WHEELCHAIR MECHANIC Inhaled Oxygen Concentration - - Weight 54 kg (119 lb) 07/27/2023 7:43 PM POWER WHEELCHAIR MECHANIC Height 170.2 cm (5' 7 ) 07/27/2023 7:43 PM POWER WHEELCHAIR MECHANIC Body Mass Index 18.64 07/27/2023 7:43 PM POWER WHEELCHAIR MECHANIC Plan of Treatment Health Maintenance Due Date Last Done Comments DTAP/TDAP/TD VACCINES (1 - Tdap) 2014 HEPATITIS B VACCINES (1 of 3 - 19+ 3-dose series) 2014 CERVICAL CANCER SCREENING 2016 HPV/Cotest (21-29) 2016 PAP SMEAR 2016 INFLUENZA VACCINE (#1) 2024 HPV VACCINES Aged Out No longer eligi ble based on patient's age to complete this topic Insurance [facility] MEDICAID
--- OUTSIDE RECORDS SUMMARY | 2024-11-09 07:57 | XMS_ITS | Referral Summary ---
Author Organization [facility] Address [address] [place] [address] Care Team Providers Care Mold Clamper Name Role Phone Bonifacio Sims MD Unavailable Ethan De Jesus MD Primary Care Provider [phone] Allergies Active Allergy Reactions Criticality Noted Date [...] on file Legal Sex Female 6:46 PM AUTO MECHANIC SUPERVISOR Gender Identity Not on file Sexual Orientation Not on file Last Filed Vital Signs Vital Sign Reading Time Taken Comments Blood Pressure 102/63 07/14/2024 10:06 AM AUTO MECHANIC SUPERVISOR Pulse 62 07/14/2024 10:06 AM AUTO MECHANIC SUPERVISOR Temperature 36.6 C (97.9 F) 07/14/2024 10:06 AM AUTO MECHANIC SUPERVISOR Respiratory Rate 16 07/14/2024 7:53 AM AUTO MECHANIC SUPERVISOR Oxygen Saturation 100% 07/14/2024 10:06 AM AUTO MECHANIC SUPERVISOR Inhaled Oxygen Concentration - - Weight 52.2 kg (115 lb) 07/14/2024 7:53 AM AUTO MECHANIC SUPERVISOR Height 172.7 cm (5' 8 ) 07/14/2024 7:53 AM AUTO MECHANIC SUPERVISOR Body Mass Index 17.49 07/14/2024 7:53 AM AUTO MECHANIC SUPERVISOR Plan of Treatment Not on file Insurance [facility] AETNA [facility] IDPA IDPA Advance Directives For more information, please contact: [phone] * Full Code (Latest Code Status on File) Date Activated Date Inactivated Comments 02/04/2022 5:58 AM 02/06/2022 8:32 PM * Full Code Date Activated Date Inactivated Comments 02/03/2022 6:06 AM 02/04/2022 5:58 AM Full CPR in ca se of cardiopulmonary arrest Care Teams Mold Clamper Relationship Specialty Start Date End Date Ethan De Jesus MD Aida [facility] [address] [place] [address] PCP - General Family Medicine 07/14/24 Bonifacio Sims MD [address] [facility] [address] NIRMAL [address] [place] [address] Woodworking Machinist Obstetrics and Gynecology 02/05/22
--- OUTSIDE RECORDS SUMMARY | 2024-11-09 07:57 | XMS_ITS | Clinical Summary ---
Author Organization [facility] Address [address] [place] [address] Care Team Providers Care Operations Supervisor Name Role Phone Bonifacio Sims MD Unavailable Ethan De Jesus MD Primary Care Provider [phone] Allergies Active Allergy Reactions Criticality Noted Date [...] on file Legal Sex Female 6:46 PM SENIOR MANAGING DIRECTOR Gender Identity Not on file Sexual Orientation [...] montgomery, Bonifacio mitchell MD Complications:None Delivery Location:[facility] Last Filed Vital Signs Vital Sign Reading Time Taken Comments Blood Pressure 102/63 07/14/2024 10:06 AM SENIOR MANAGING DIRECTOR Pulse 62 07/14/2024 10:06 AM SENIOR MANAGING DIRECTOR Temperature 36.6 C (97.9 F) 07/14/2024 10:06 AM SENIOR MANAGING DIRECTOR Respiratory Rate 16 07/14/2024 7:53 AM SENIOR MANAGING DIRECTOR Oxygen Saturation 100% 07/14/2024 10:06 AM SENIOR MANAGING DIRECTOR Inhaled Oxygen Concentration - - Weight 52.2 kg (115 lb) 07/14/2024 7:53 AM SENIOR MANAGING DIRECTOR Height 172.7 cm (5' 8 ) 07/14/2024 7:53 AM SENIOR MANAGING DIRECTOR Body Mass Index 17.49 07/14/2024 7:53 AM SENIOR MANAGING DIRECTOR Plan of Treatment Health Maintenance Due Date [...] HPV Vaccines Completed 04/20/2012, 04/30, 03/18/2010 Insurance [facility] IDPA IDPA Advance Directives For more information, please contact: [phone] * Full Code (Latest Code Status on File) Date Activated Date Inactivated Comments 02/04/2022 5:58 AM 02/06/2022 8:32 PM * Full Code Date Activated Date Inactivated Comments 02/03/2022 6:06 AM 02/04/2022 5:58 AM Full CPR in ca se of cardiopulmonary arrest Care Teams Operations Supervisor Relationship Specialty Start Date End Date Ethan De Jesus MD [address] [place] [address] [address] [place] [address] PCP - General Family Medicine 07/14/24 Bonifacio Sims MD [address] [place] [address] [address] NIRMAL [address] [place] [address] Communications Officer Obstetrics and Gynecology 02/05/22
[2024-11-09] MEDS: SODIUM CHLORIDE 0.9% IV 1,000 ML 999 ML IV CONT (08:01)
[2024-11-09] MEDS: ONDANSETRON INJ 4 MG/2 ML VIAL IV PUSH (08:02)
[2024-11-09] MEDS: PANTOPRAZOLE SODIUM IV 40 MG VIAL IV PUSH (08:02)
[2024-11-09 08:05] LABS: Alanine Aminotransferase 23 U/L (6-35); Albumin Level 4.7 g/dL (3.5-5.1); Alkaline Phosphatase 83 U/L (38-126); Anion Gap 10 mmol/L (4-12); Aspartate Amino Transferase 44 U/L (14-36); Bilirubin,Total 0.3 mg/dL (0.2-1.3); Blood Urea Nitrogen 6 mg/dL (7-17); Calcium 9.2 mg/dL (8.4-10.2); Carbon Dioxide 26 mmol/L (22-30); Chloride 102 mmol/L (98-107); Estimated CRCL calculation 75 ml/min; Estimated Glomerular Filt Rate > 60; Glucose 102 mg/dL (65-110); Lipase 91 U/L (23-300); Potassium 3.3 mmol/L (3.4-5.0); Sodium 138 mmol/L (137-145)
[2024-11-09 08:06] LABS: Add Urine Microscopic? YES; Appearance Urine Turbid (Clear); Bacteria Urine 4+ /hpf; Bilirubin Urine 1+ (Negative); Blood Urine Negative (Negative); Color Urine Dark Yellow (Yellow); Glucose Urine UA Negative (Negative); Ketones Urine 1+ mg/dL (Negative); Leukocyte Esterase Ur Trace LEU/UL (Negative); Need Manual Microscopic Reviewed; Nitrate Urine Negative (Negative); Protein Urine 1+ mg/dL (Negative); Specific Grav Ur 1.029 (1.001-1.035); Squamous Epithelial Cell Urine Many /hpf (Few)
--- NOTE | 2024-11-09 08:07 | PC.NURSE ---
Patient refused Morphine at this time.
--- NOTE | 2024-11-09 09:17 | ED.GENADULT ---
HPI - General Adult General Chief complaint: Abdominal Pain Stated complaint: my gallbladder hurts Time Seen by Provider: 11/09/24 07:46 History of Present Illness HPI narrative: Patient is a 29-year-old female who presents emergency department chief complaint abdominal pain. Patient reports that she has been having epigastric type discomfort for the last 5 days reports been getting worsens worse today. The patient reports that she has had some diarrhea and reports had some nausea. Patient reports pain is not improved by anything patient reports no prior abdominal surgeries reports her last menstrual period was about a month Related Data Allergies Allergy/AdvReac Type Severity Reaction Status Date / Time Penicillins Allergy Unknown UNKNOWN Verified 11/09/24 07:25 REACTION latex Allergy Hives Verified 11/09/24 07:25 Review of Systems Review of Systems: A 10 system review of systems was completed on the patient and is negative except for what is stated in the HPI. Nursing and ancillary documentation was reviewed. [facility] Past Medical History Medical History Asthma Social History Social History Smoking status: Current every day smoker Tobacco type: e-cigarettes/vaping Second hand tobacco smoke exposure: Yes Alcohol intake: never Substance use: never Living arrangements: with family Gender identity (if verbalized by the patient): Female Exam Narrative: GENERAL: Well-appearing, well-nourished, and in no acute distress. HEAD: Normocephalic, atraumatic. EYES: PERRLA and EOMI. ENT: Nares clear, no rhinorrhea or epistaxis. Mucous membranes moist. NECK: Supple. CHEST: Clear to auscultation. No respiratory distress. HEART: Regular rate and rhythm. No murmur heard. Normal peripheral pulses. ABDOMEN: Soft, nontender, nondistended, normal active bowel sounds. EXTREMITIES: Normal range of motion. No edema. SKIN: Warm, dry, no rash. NEURO: No focal deficits. Alert and oriented x3. PSYCH: Normal mood and affect. Course Vital Signs Vital signs: Vital Signs Temperature 36.8 C 11/09/24 07:30 Pulse Rate 104 H 11/09/24 07:30 Respiratory Rate 18 11/09/24 07:30 Blood Pressure 129/90 11/09/24 07:30 Pulse Oximetry 100 11/09/24 07:30 Oxygen Delivery Room Air 11/09/24 07:30 Temperature 36.8 C 11/09/24 07:30 Pulse Rate 104 H 11/09/24 07:30 Respiratory Rate 18 11/09/24 07:30 Blood Pressure 129/90 11/09/24 07:30 Pulse Oximetry 100 11/09/24 07:30 Oxygen Delivery Room Air 11/09/24 07:30 Medical Decision Making MDM Narrative Medical decision making narrative: Differential diagnosis includes intra-abdominal infection, diverticulitis, colitis, appendicitis, cholecystitis, pancreatitis Laboratory studies were obtained on the patient showed normal CBC CMP was within normal limits lipase was normal urinalysis showed trace leukocyte esterase 6-10 white blood cells and 4+ bacteria The patient started antibiotics for UTI CT scan of the abdomen pelvis showed no acute abnormalities ultrasound of the right upper quadrant showed no evidence of cholecystitis. Vital Signs Vital Signs: Vital Signs Temperature 36.8 C 11/09/24 07:30 Pulse Rate 104 H 11/09/24 07:30 Respiratory Rate 18 11/09/24 07:30 Blood Pressure 129/90 11/09/24 07:30 Pulse Oximetry 100 11/09/24 07:30 Oxygen Delivery Room Air 11/09/24 07:30 Temperature 36.8 C 11/09/24 07:30 Pulse Rate 104 H 11/09/24 07:30 Respiratory Rate 18 11/09/24 07:30 Blood Pressure 129/90 11/09/24 07:30 Pulse Oximetry 100 11/09/24 07:30 Oxygen Delivery Room Air 11/09/24 07:30 Lab Data 11/09/24 07:49 11/09/24 07:49 Labs: Lab Results 11/09/24 11/09/24 Range/Units 07:49 07:52 WBC 6.2 (4.5-10.0) K/mm3 RBC 4.30 (4.2-5.4) M/mm3 Hgb 12.8 (12.0-15.0) g/dL Hct 38.8 (37.0-47.0) % MCV 90.2 (80-100) fl MCH 29.8 (26-34) pg MCHC 33.0 (32-36) g/dl RDW 12.8 (11.5-14.5) % Plt Count 348 (150-375) k/mm3 MPV 10.2 (7.4-10.4) fl Immature Gran % (Auto) 0.2 (0-0.5) % Neut % (Auto) 59.5 (45.5-73.1) % Lymph % (Auto) 21.6 (18.3-44.2) % Wolfe % (Auto) 14.9 H (2.6-8.5) % Eos % (Auto) 3.2 (0-4.4) % Baso % (Auto) 0.6 (0.2-1.2) % Lymph # (Auto) 1.34 (0.9-3.2) K/mm3 Wolfe # (Auto) 0.9 H (0.1-0.6) K/mm3 Eos # (Auto) 0.2 (0-0.3) K/mm3 Baso # (Auto) 0.0 (0.0-0.1) K/mm3 Abs Immat Gran (auto) 0.01 (0.00-0.031) K/mm3 Absolute Neuts (auto) 3.7 (1.3-6.7) K/mm3 Absolute Nucleated RBC 0.000 (0.0-0.012) K/mm3 Nucleated RBC % 0.0 (0.0-0.2) % Sodium 138 (137-145) mmol/L Potassium 3.3 L (3.4-5.0) mmol/L Chloride 102 (98-107) mmol/L Carbon Dioxide 26 (22-30) mmol/L Anion Gap 10 (4-12) mmol/L BUN 6 L (7-17) mg/dL Creatinine 0.71 (0.7-1.0) mg/dL Estim Creat Clear Calc 75 ml/min Estimated GFR > 60 (59 - ) Glucose 102 (65-110) mg/dL Calcium 9.2 (8.4-10.2) mg/dL Total Bilirubin 0.3 (0.2-1.3) mg/dL AST 44 H (14-36) U/L ALT 23 (6-35) U/L Alkaline Phosphatase 83 (38-126) U/L Total Protein 8.0 (6.3-8.2) g/dL Albumin 4.7 (3.5-5.1) g/dL Lipase 91 (23-300) U/L Urine Color Dark yellow (Yellow) Urine Appearance Turbid H (Clear) Urine pH 6.0 (5.0-9.0) Ur Specific [place] 1.029 (1.001-1.035) Urine Protein 1+ H (Negative) mg/dL Urine Glucose (UA) Negative (Negative) mg/dL Urine Ketones 1+ H (Negative) mg/dL Ur Blood (Man) Negative (Negative) Urine Nitrate Negative (Negative) Urine Bilirubin 1+ H (Negative) Urine Urobilinogen 1.0 (<2.0) mg/dL Add Ur Microanalysis Reviewed Leukocyte Esterase Rfl Trace H (Negative) FATOUMATA/UL Urine RBC 3-5 H (0-2) /hpf Urine WBC 6-10 H (0-3) /hpf Ur Squamous Epith Cells Many H (Few) /hpf Urine Bacteria 4+ H /hpf Urine Casts 6-10 POC Urine HCG, Qual Negative (Negative) Discharge Plan Discharge Clinical Impression: Gastritis, UTI (urinary tract infection), Abdominal pain Patient Disposition: Home Condition: Stable Instructions: Antibiotic Form, Gastritis (ED), Abdominal Pain (ED) Patient Language: Vietnamese Prescriptions: New cephalexin 500 mg capsule 500 mg PO Q12H 7 Days Qty: 14 0RF pantoprazole [Protonix] 40 mg tablet,delayed release (DR/EC) 40 mg PO HS 28 Days Qty: 28 0RF ondansetron 4 mg tablet,disintegrating 4 mg PO Q8H PRN (Reason: nausea and vomiting) Qty: 10 0RF No Action ondansetron 4 mg tablet,disintegrating 4 mg PO Q6H PRN (Reason: nausea and vomiting) Qty: 10 0RF ibuprofen 600 mg tablet 600 mg PO Q6H PRN (Reason: fever or pain) Qty: 14 0RF azithromycin 500 mg tablet See Rx Instructions .ROUTE .COMPLEX 5 Days Qty: 5 0RF Rx Instructions: For 500 mg dose pack: take 500 mg once daily for 3 days prednisone 20 mg tablet 60 mg PO DAILY 5 Days Qty: 15 0RF albuterol sulfate 90 mcg/actuation aero powdr breath act w/sensor 1 inh INHALATION Q4-6H PRN (Reason: shortness of breath or wheezing) Qty: 1 0RF azithromycin 500 mg tablet See Rx Instructions .ROUTE .COMPLEX 5 Days Qty: 5 0RF Rx Instructions: take 500 mg today (day 1), then 250 mg for 4 days (days 2-5) Follow-up/Referrals: Farhat Srinivasan MD [Physician] - UNKNOWN,DOCTOR [Primary Care Provider] - Time of Disposition: 09:30
== END 2024-11-09 09:52 | disposition home or self-care (01) ==
PROVIDERS: Emergency Provider Emergency Medicine
DX: N39.0 Urinary tract infection, site not specified (principal); K29.70 Gastritis, unspecified, without bleeding; J45.909 Unspecified asthma, uncomplicated; F17.290 Nicotine dependence, other tobacco product, uncomplicated
CPT/HCPCS: 36415; 74177; 76705; 80053; 81001; 81025; 83690; 85025; 96361; 96374; 96375; 99284; J2405; J2470; J7030; Q9967

== ENCOUNTER 2025-02-18 00:05 | Day surgery (SDC) | payer OTHER, SELFPAY ==
[2025-02-18] VITALS (132 sets, daily range): BP systolic 96–121; BP diastolic 53–86; PULSE 49–103; RESP 12–20; TEMP 36.4–36.8; O2SAT 86–100
--- NOTE | ~2025-02-18 | US_ITS ---
EXAMINATION: US pelvic complete w TV INDICATION: Pelvic pain. Rule out torsion. Comparison:No prior studies for comparison. TECHNIQUE: Multiple transabdominal and endovaginal sonographic images of the pelvis performed. FINDINGS: The uterus measures 8.1 x 4.4 x 5.6 cm. The endometrium is markedly thickened containing large complex mixed solid and cystic collection. Internal components are heterogeneous raising concern for retained tissue or organized clot. There is trace free fluid in the pelvis. The right ovary measures 2.3 x 2.1 x 1.3 cm and the left ovary measures 2.4 x 2.8 x 2.1 cm. There are small follicles in each ovary. Both ovaries are identified without significant mass or cyst. Normal baseline Doppler signal is seen however there is increased vascularity in the right ovary. No adnexal mass is identified. There is trace free fluid in the pelvis. There are no abnormal masses seen on either side. IMPRESSION: 1. Large complex antra endometrial collection within the thickened endometrium, concerning for retained products of conception versus intrauterine blood/clot. Ovarian hypervascularity on the right may be physiologic but infection related hyperemia cannot be excluded in this clinical setting. Differential diagnosis includes retained products of conception, intrauterine blood clot, endometrial right is with intrauterine debris and much less likely gestational trophoblastic disease. Recommend correlation with serum beta-hCG levels. Consider gynecologic consultation. Reviewed, dictated and finalized at location O. IMPRESSION: 1. Large complex antra endometrial collection within the thickened endometrium, concerning for retained products of conception versus intrauterine blood/clot. Ovarian hypervascularity on the right may be physiologic but infection related hyperemia cannot be excluded in this clinical setting. Differential diagnosis includes retained products of conception, intrauterine blood clot, endometrial right is with intrauterine debris and much less likely gestational trophoblasti c disease. Recommend correlation with serum beta-hCG levels. Consider gynecolog ic consultation.
--- OUTSIDE RECORDS SUMMARY | 2025-02-18 00:14 | XMS_ITS | Clinical Summary ---
Author Organization [facility] Address [address] [place] [address] Phone Care Team Providers Care Perpetual Inventory Clerk Name Role Phone Provider, None Primary Care [...] 8:17 PM CDT Height 172.7 cm (5' 8) 12/25/2023 8:17 PM CDT Body Mass Index 19.01 12/25/2023 8:17 PM CDT Plan of Treatment Health Maintenance Due Date Last Done Comments Pap Smear 2016 SARS-COV-2 Immunization ( season) 2024 Influenza Immunization (#1) 2025 Respiratory Syncytial Virus (RSV) Immunization (Adult) (1 - 1-dose 75+ series) 2070 Hepatitis B Immunization Completed 996, 1995, 1995 DTaP/Tdap/Td Immunization Discontinued 2006, 12/27/1999, 10/14/1996, Additional history exists TdaP Immunization Completed 11/25/2006 Human Papillomavirus (HPV) Immunization Completed 04/20/2012, 05/20/2010, 03/18/2010 Meningococcal Immunization (ACWY) Completed 04/20/2012 Hepatitis C Virus (HCV) Screening Completed 06/20/2021 Pneumococcal Immunization Combined Aged Out No longer eligible based on patient's age to complete this topic Rotavirus Immunization Aged Out No lo nger eligible based on patient's age to complete this topic Insurance MEDICAID AETNA [facility] Advance Directives * Full Code (Latest Code Status on File) Date Activated Date Inactivated Comments 08/18/2021 9:20 AM 08/22/2021 4:53 PM CPR-Full Jamil atment: FULL ARREST: Attempt Resuscitation/CPR wit intubation and mechanical ventilation. PRE-ARREST: Use entire range of life support measures to stabilize the patient. Care Teams Perpetual Inventory Clerk Relationship Specialty Start Date End Date Provider, None [place] PCP - General 01/11/16
--- OUTSIDE RECORDS SUMMARY | 2025-02-18 00:14 | XMS_ITS | Clinical Summary ---
Author Organization [facility] Address [address] [place] [address] Phone Care Team Providers Care Automation Qa Tester Name Role Phone Unavailable Primary Care Provider [...] on file Legal Sex Female 2:48 PM LINER REROLL TENDER Gender Identity Not on file Sexual Orientation Not on file Last Filed Vital Signs Vital Sign Reading Time Taken Comments Blood Pressure 109/68 07/28/2023 12:38 AM LINER REROLL TENDER Pulse 81 07/28/2023 12:50 AM LINER REROLL TENDER Temperature 36.9 C (98.4 F) 07/27/2023 7:43 PM LINER REROLL TENDER Respiratory Rate 19 07/28/2023 12:50 AM LINER REROLL TENDER Oxygen Saturation 100% 07/28/2023 12:50 AM LINER REROLL TENDER Inhaled Oxygen Concentration - - Weight 54 kg (119 lb) 07/27/2023 7:43 PM LINER REROLL TENDER Height 170.2 cm (5' 7) 07/27/2023 7:43 PM LINER REROLL TENDER Body Mass Index 18.64 07/27/2023 7:43 PM LINER REROLL TENDER Plan of Treatment Health Maintenance Due Date Last Done Comments HPV VACCINES (1 - 3-dose series) 2010 DTAP/TDAP/TD VACCINES (1 - Tdap) 2014 HEPATITIS B VACCINES (1 of 3 - 19+ 3-dose series) 02/27 CERVICAL CANCER SCREENING 2016 HPV/Cotest (21-29) 2016 PAP SMEAR 2016 INFLUENZA VACCINE (#1) [address] [place] [place] [address] MEDICAID
--- OUTSIDE RECORDS SUMMARY | 2025-02-18 00:14 | XMS_ITS | Clinical Summary ---
Author Organization [facility] Address [address] [place] [address] Care Team Providers Care Anesthesiology Resident Name Role Phone Bonifacio Sims MD Unavailable [phone] Ethan De Jesus MD Primary Care Provider [phone] Allergies Active Allergy Reactions Criticality Noted Date [...] on file Legal Sex Female 6:46 PM SHIFT SUPERVISOR RN Gender Identity Not on file Sexual Orientation [...] montgomery, Bonifacio mitchell MD Complications:None Delivery Location:This [facility] ([facility] Last Filed Vital Signs Vital Sign Reading Time Taken Comments Blood Pressure 102/63 07/14/2024 10:06 AM SHIFT SUPERVISOR RN Pulse 62 07/14/2024 10:06 AM SHIFT SUPERVISOR RN Temperature 36.6 C (97.9 F) 07/14/2024 10:06 AM SHIFT SUPERVISOR RN Respiratory Rate 16 07/14/2024 7:53 AM SHIFT SUPERVISOR RN Oxygen Saturation 100% 07/14/2024 10:06 AM SHIFT SUPERVISOR RN Inhaled Oxygen Concentration - - Weight 52.2 kg (115 lb) 07/14/2024 7:53 AM SHIFT SUPERVISOR RN Height 172.7 cm (5' 8) 07/14/2024 7:53 AM SHIFT SUPERVISOR RN Body Mass Index 17.49 07/14/2024 7:53 AM SHIFT SUPERVISOR RN Plan of Treatment Health Maintenance Due Date Last Done Comments Cervical Cancer Screening 1995 Depression Screening 1995 Hepatitis C Screening 1995 Varicella Vaccines (2 of 2 - 2-dose childhood series) 1999 08/02/1996 Regular Well Visit/Exam 18-64 2013 Pneumococcal vaccine <65 (1 of 2 - PCV) 2014 DTaP/Tdap/Td Vaccine (7 - Td or Tdap) 11/25/2016 11/25/2006, 12/27/1999, 10/14/1996, Additional history exists Influenza Vaccine (#1) 2025 Hepatitis B Screening Completed 02/15/1996 , 1995, 1995 HPV Vaccines Completed 04/20/2012, 04/30, 03/18/2010 Insurance [facility] ID[employer] Advance Directives For more information, please contact: [phone] * Full Code (Latest Code Status on File) Date Activated Date Inactivated Comments 02/04/2022 5:58 AM 02/06/2022 8:32 PM * Full Code Date Activated Date Inactivated Comments 02/03/2022 6:06 AM 02/04/2022 5:58 AM Full CPR in ca se of cardiopulmonary arrest Care Teams Anesthesiology Resident Relationship Specialty Start Date End Date Ethan De Jesus MD [address] [place] [address] [address] NIRMAL Al[address] [place] [address] PCP - General Family Medicine 07/14/24 Bonifacio Sims MD [address] [place] [address] [address] NIRM[address] [place] [address] Supply Chain Assistant Obstetrics and Gynecology 02/05/22
--- OUTSIDE RECORDS SUMMARY | 2025-02-18 00:14 | XMS_ITS | Encounter Summary ---
Author Organization [facility] Address [address] [place] [address] Care Team Providers Care Editorial Project Manager Name Role Phone Naima Larson MD Primary Care Provider [phone] Unknown, Notinfile Primary Care Provider Unavail able No, Physician Primary Care Provider [phone] Unknown, Notinfile Primary Care Provider Unavail able Bonifacio Sims MD Unavailable [phone] Ethan Pan MD Primary Care Provider [phone] Unknown, Notinfile Primary Care Provider Unavail able Ethan De Jesus MD Primary Care Provider [phone] Encounter Details Date Type Department Care Team (Late st Contact Info) Description 08/18/[address] [facility] Imaging [address] [place] [address] Enmanuel Reyes MD [address] [place] [address] [address] KINNEY [address] [facility] [address] [place] [address] Social History Tobacco Use Types Packs/Day Years Used Date Smoking Tobacco: Some Days Smokeless Tobacco: Never Comments:e cig Alcohol Use Standard Drinks/Week Comments Yes 0 (1 standard drink = 0.6 oz pur e alcohol) socially Comments No Sex and Gender Information Value Date Recorded Sex Assigned at Not on file Legal Sex Female 6:46 PM COLLAR CUTTER Gender Identity Not on file Sexual Orientation Not on file documented as of this encounter Plan of Treatment Not on file documented as of this encounter Visit Diagnoses Not on filedocumented in this encounter Additional Health Concerns Infection Onset Date Last Indicated Resolved Time COVID: Suspected 11/14/2021 11/14/2021 11/14/2021 3:24 PM CDT COVID: Suspected 06/21/2022 06/21/2022 06/22/2022 12:28 AM COLLAR CUTTER COVID19 06/21/2022 06/21/2022 07/01/2022 3:05 AM COLLAR CUTTER COVID: Suspected 08/30/2023 08/30/2023 08/30/2023 5:19 PM COLLAR CUTTER documented as of this encounter Care Teams Editorial Project Manager Relationship Specialty Start Date End Date Naima Larson MD [address] [facility] [address] NIRMAL Alfaro [address] [address] PCP - General 06/15/19 09/09/21 Unknown, Notinfile PCP - General 09/10/21 11/06/21 No, Physician PCP - General 11/07/21 11/13/21 Unknown, Notinfile PCP - General 11/14/21 08/29/23 Ethan Pan MD [address] [place] [address] [place] [address] PCP - General Family Medicine 08/30/23 03/31/24 Unknown, Notinfile PCP - General 04/01/24 07/13/24 Ethan De Jesus MD [address] [place] [address] [place] [address] PCP - General Family Medicine 07/14/24 Bonifacio Sims MD [address] [place] [address] [address] NIRMAL Alfaro [facility] [address] [place] [address] Dispatcher [employer] Obstetrics and Gynecology 02/05/22 documented as of this encounter
--- NOTE | 2025-02-18 00:28 | ED.FEMALEGU ---
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 Patient states on 01/25 a she took 2 pills for a medical because she had a demise. She states she is approximately 6 weeks and 4 days . She states the 2 pills did not cause her to bleed so she underwent a D&C with the [facility] on 02/09/2025. She states approximately 1 week later she started developing vaginal bleeding. She states over the past 3 days she has developed increased bleeding and passing dime-sized clots with associated suprapubic abdominal cramping. She states she is changing her pad about once every 1.5 hours. She denies fever. She is endorsing nausea and vomiting. <Eulalia Goyal PA-C - Last Filed: 02/18/25 02:57> Related Data Allergies/Adverse reactions: Allergies Allergy/AdvReac Type Severity Reaction Status Date / Time Penicillins Allergy Unknown UNKNOWN Verified 11/09/24 07:25 REACTION latex Allergy Hives Verified 11/09/24 07:25 <Eulalia Goyal PA-C - Last Filed: 02/18/25 02:57> Review of Systems Review of Systems: All systems reviewed & are unremarkable except as noted in HPI and below <Eulalia Goyal PA-C - Last Filed: 02/18/25 02:57> PMFSH Past Medical History Medical History: Medical History Asthma <Eulalia Goyal PA-C - Last Filed: 02/18/25 02:57> Social History Social History: Social History Smoking status: Current every day smoker Tobacco type: e-cigarettes/vaping Second hand tobacco smoke exposure: Yes Alcohol intake: never Substance use: never Living arrangements: with family Gender identity (if verbalized by the patient): Female <Eulalia Goyal PA-C - Last Filed: 02/18/25 02:57> Exam Narrative: GENERAL: Well-appearing, well-nourished, and in no acute distress. HEAD: Normocephalic, atraumatic. EYES: EOMI. ENT: Nares clear, no rhinorrhea or epistaxis. Mucous membranes moist. NECK: Supple. CHEST: Clear to auscultation. No respiratory distress. HEART: Regular rate and rhythm. No murmur heard. Normal peripheral pulses. ABDOMEN: Abdomen soft with tenderness in the suprapubic region involuntary guarding. No rebound or rigidity. No CVA tenderness : Chaperoned by RN Savanna: Normal external genitalia. Moderate amount of blood vaginal vault with no large clots. No significant bleeding. Cervical os minimally open with no products of conception and office or vaginal vault. No discharge. Tenderness to uterus with palpation EXTREMITIES: Normal range of motion. No edema. SKIN: Warm, dry, no rash. NEURO: No focal deficits. Alert and oriented x3 <Eulalia Goyal PA-C - Last Filed: 02/18/25 02:57> Course ELECTRONIC COURT RECORDER/PA Physician Supervision This visit was performed by both a physician and an APC. For this patient encounter, I reviewed the ELECTRONIC COURT RECORDER or PA documentation, treatment plan, and medical decision making and had [id number] time with this patient. I performed all aspects of the MDM as documented. <Sang Winslow MD - Last Filed: 02/18/25 03:31> Vital Signs Vital signs: Vital Signs Temperature 97.7 F 02/18/25 00:18 Pulse Rate 86 02/18/25 00:18 Respiratory Rate 19 02/18/25 00:18 Blood Pressure 107/86 02/18/25 00:18 Pulse Oximetry 100 02/18/25 00:18 Temperature 97.7 F 02/18/25 00:18 Pulse Rate 73 02/18/25 03:10 Respiratory Rate 15 02/18/25 03:10 Blood Pressure 108/82 02/18/25 03:10 Pulse Oximetry 100 02/18/25 03:10 <Eulalia Goyal PA-C - Last Filed: 02/18/25 02:57> Vital Signs Temperature 97.7 F 02/18/25 00:18 Pulse Rate 86 02/18/25 00:18 Respiratory Rate 19 02/18/25 00:18 Blood Pressure 107/86 02/18/25 00:18 Pulse Oximetry 100 02/18/25 00:18 Temperature 97.7 F 02/18/25 00:18 Pulse Rate 73 02/18/25 03:10 Respiratory Rate 15 02/18/25 03:10 Blood Pressure 108/82 02/18/25 03:10 Pulse Oximetry 100 02/18/25 03:10 <Sang Winslow MD - Last Filed: 02/18/25 03:31> MDM - Female Genitourinary MDM Narrative Medical decision making narrative: 29-year-old female who is 83 presents to the emergency department for vaginal bleeding and suprapubic abdominal cramping after undergoing a D&C for demise on 02/09/2025. See HPI for further history. Triage vitals are stable. Patient is afebrile and nontoxic appearing. Exam significant for the above. CBC with mild leukocytosis of 10.3. Hemoglobin is 9.8 with normal MCV and MCHC. Per chart review patient had a hemoglobin of 12.8 in October of 2024. Chemistries are unremarkable. Lipase is normal. positive, likely due to retained POC. Beta hcg is 520.44. Pelvic ultrasound per the [facility] interpretation shows a large fluid area seen within the uterus with debris seen within the uterus. On the right adnexa there is a hypervascular, hypoechoic area seen within the right ovary with a ring of color around it. There is vascular flow present in both ovaries. There is fluid seen around the uterus and follicles seen in both ovaries. Patient updated on results. On re-evaluation she is resting comfortably in exam bed reports improvement after IV fluids, Toradol and Zofran. She states she is still having persistent pain, I did offer her additional pain medications however she politely declined. She remains hemodynamically stable. I discussed findings with OBGYN on-call, Dr. Malika Arrieta who recommends admission, starting antibiotics for possible endometritis, providing a dose of 50 mg per meter squared of methotrexate and repeat H&H at 6:00 a.m.. He plans to see the patient in a few hours. Patient made NPO. <Eulalia Goyal PA-C - Last Filed: 02/18/25 02:57> 29-year-old female who is 83 presents to the emergency department for vaginal bleeding and suprapubic abdominal cramping after undergoing a D&C for demise on 02/09/2025. See HPI for further history. Triage vitals are stable. Patient is afebrile and nontoxic appearing. Exam significant for the above. CBC with mild leukocytosis of 10.3. Hemoglobin is 9.8 with normal MCV and MCHC. Per chart review patient had a hemoglobin of 12.8 in October of 2024. Chemistries are unremarkable. Lipase is normal. positive, likely due to retained POC. Beta hcg is 520.44. Pelvic ultrasound per the [facility] interpretation shows a large fluid area seen within the uterus with debris seen within the uterus. On the right adnexa there is a hypervascular, hypoechoic area seen within the right ovary with a ring of color around it. There is vascular flow present in both ovaries. There is fluid seen around the uterus and follicles seen in both ovaries. Patient updated on results. On re-evaluation she is resting comfortably in exam bed reports improvement after IV fluids, Toradol and Zofran. She states she is still having persistent pain, I did offer her additional pain medications however she politely declined. She remains hemodynamically stable. I discussed findings with OBGYN on-call, Dr. Malika Arrieta who recommends admission, starting antibiotics for possible endometritis, providing a dose of 50 mg per meter squared of methotrexate and repeat H&H at 6:00 a.m. He plans to see the patient in a few hours. Patient made NPO. <Sang Winslow MD - Last Filed: 02/18/25 03:31> Lab Data Result diagrams: 02/18/25 00:26 02/18/25 00:26 <Eulalia Goyal PA-C - Last Filed: 02/18/25 02:57> Labs: Lab Results 02/18/25 02/18/25 02/18/25 Range/Units 00:26 00:35 01:39 WBC 10.3 H (4.5-10.0) K/mm3 RBC 3.34 L (4.2-5.4) M/mm3 Hgb 9.8 L D (12.0-15.0) g/dL Hct 30.3 L (37.0-47.0) % MCV 90.7 (80-100) fl MCH 29.3 (26-34) pg MCHC 32.3 (32-36) g/dl RDW 13.1 (11.5-14.5) % Plt Count 372 (150-375) k/mm3 MPV 9.5 (7.4-10.4) fl Immature Gran % (Auto) 0.2 (0-0.5) % Neut % (Auto) 54.6 (45.5-73.1) % Lymph % (Auto) 32.4 (18.3-44.2) % [place] % (Auto) 7.2 (2.6-8.5) % Eos % (Auto) 4.7 H (0-4.4) % Baso % (Auto) 0.9 (0.2-1.2) % Lymph # (Auto) 3.32 H (0.9-3.2) K/mm3 [place] # (Auto) 0.7 H (0.1-0.6) K/mm3 Eos # (Auto) 0.5 H (0-0.3) K/mm3 Baso # (Auto) 0.1 (0.0-0.1) K/mm3 Abs Immat Gran (auto) 0.02 (0.00-0.031) K/mm3 Absolute Neuts (auto) 5.6 (1.3-6.7) K/mm3 Absolute Nucleated RBC 0.000 (0.0-0.012) K/mm3 Nucleated RBC % 0.0 (0.0-0.2) % PT 13.9 (11.1-14.7) Seconds INR 1.1 APTT 30.3 (22.3-36.8) Seconds Sodium 137 (137-145) mmol/L Potassium 3.8 (3.4-5.0) mmol/L Chloride 105 (98-107) mmol/L Carbon Dioxide 25 (22-30) mmol/L Anion Gap 7 (4-12) mmol/L BUN 12 D (7-17) mg/dL Creatinine 0.74 (0.7-1.0) mg/dL Estim Creat Clear Calc 78 ml/min Estimated GFR > 60 (59 - ) Glucose 81 (65-110) mg/dL Calcium 9.1 (8.4-10.2) mg/dL Total Bilirubin 0.2 (0.2-1.3) mg/dL AST 24 (14-36) U/L ALT 12 (6-35) U/L Alkaline Phosphatase 48 (38-126) U/L Total Protein 7.0 (6.3-8.2) g/dL Albumin 4.2 (3.5-5.1) g/dL Lipase 219 (23-300) U/L Beta HCG, Quant 520.44 Cancelled mIU/ML Urine Color Yellow (Yellow) Urine Appearance Clear (Clear) Urine pH 7.5 (5.0-9.0) Ur Specific [place] 1.015 (1.001-1.035) Urine Protein Negative (Negative) mg/dL Urine Glucose (UA) Negative (Negative) mg/dL Urine Ketones Negative (Negative) mg/dL Ur Blood (Man) 2+ H (Negative) Urine Nitrate Negative (Negative) Urine Bilirubin Negative (Negative) Urine Urobilinogen 0.2 (<2.0) mg/dL Leukocyte Esterase Rfl Negative (Negative) [place]/UL POC Urine HCG, Qual (Negative) 02/18/25 Range/Units 01:40 WBC (4.5-10.0) K/mm3 RBC (4.2-5.4) M/mm3 Hgb (12.0-15.0) g/dL Hct (37.0-47.0) % MCV (80-100) fl MCH (26-34) pg MCHC (32-36) g/dl RDW (11.5-14.5) % Plt Count (150-375) k/mm3 MPV (7.4-10.4) fl Immature Gran % (Auto) (0-0.5) % Neut % (Auto) (45.5-73.1) % Lymph % (Auto) (18.3-44.2) % [place] % (Auto) (2.6-8.5) % Eos % (Auto) (0-4.4) % Baso % (Auto) (0.2-1.2) % Lymph # (Auto) (0.9-3.2) K/mm3 [place] # (Auto) (0.1-0.6) K/mm3 Eos # (Auto) (0-0.3) K/mm3 Baso # (Auto) (0.0-0.1) K/mm3 Abs Immat Gran (auto) (0.00-0.031) K/mm3 Absolute Neuts (auto) (1.3-6.7) K/mm3 Absolute Nucleated RBC (0.0-0.012) K/mm3 Nucleated RBC % (0.0-0.2) % PT (11.1-14.7) Seconds INR APTT (22.3-36.8) Seconds Sodium (137-145) mmol/L Potassium (3.4-5.0) mmol/L Chloride (98-107) mmol/L Carbon Dioxide (22-30) mmol/L Anion Gap (4-12) mmol/L BUN (7-17) mg/dL Creatinine (0.7-1.0) mg/dL Estim Creat Clear Calc ml/min Estimated GFR (59 - ) Glucose (65-110) mg/dL Calcium (8.4-10.2) mg/dL Total Bilirubin (0.2-1.3) mg/dL AST (14-36) U/L ALT (6-35) U/L Alkaline Phosphatase (38-126) U/L Total Protein (6.3-8.2) g/dL Albumin (3.5-5.1) g/dL Lipase (23-300) U/L Beta HCG, Quant mIU/ML Urine Color (Yellow) Urine Appearance (Clear) Urine pH (5.0-9.0) Ur Specific [place] (1.001-1.035) Urine Protein (Negative) mg/dL Urine Glucose (UA) (Negative) mg/dL Urine Ketones (Negative) mg/dL Ur Blood (Man) (Negative) Urine Nitrate (Negative) Urine Bilirubin (Negative) Urine Urobilinogen (<2.0) mg/dL Leukocyte Esterase Rfl (Negative) [place]/UL POC Urine HCG, Qual Positive (Negative) <Eulalia Goyal PA-C - Last Filed: 02/18/25 02:57> Lab Results 02/18/25 02/18/25 02/18/25 Range/Units 00:26 00:35 01:39 WBC 10.3 H (4.5-10.0) K/mm3 RBC 3.34 L (4.2-5.4) M/mm3 Hgb 9.8 L D (12.0-15.0) g/dL Hct 30.3 L (37.0-47.0) % MCV 90.7 (80-100) fl MCH 29.3 (26-34) pg MCHC 32.3 (32-36) g/dl RDW 13.1 (11.5-14.5) % Plt Count 372 (150-375) k/mm3 MPV 9.5 (7.4-10.4) fl Immature Gran % (Auto) 0.2 (0-0.5) % Neut % (Auto) 54.6 (45.5-73.1) % Lymph % (Auto) 32.4 (18.3-44.2) % [place] % (Auto) 7.2 (2.6-8.5) % Eos % (Auto) 4.7 H (0-4.4) % Baso % (Auto) 0.9 (0.2-1.2) % Lymph # (Auto) 3.32 H (0.9-3.2) K/mm3 [place] # (Auto) 0.7 H (0.1-0.6) K/mm3 Eos # (Auto) 0.5 H (0-0.3) K/mm3 Baso # (Auto) 0.1 (0.0-0.1) K/mm3 Abs Immat Gran (auto) 0.02 (0.00-0.031) K/mm3 Absolute Neuts (auto) 5.6 (1.3-6.7) K/mm3 Absolute Nucleated RBC 0.000 (0.0-0.012) K/mm3 Nucleated RBC % 0.0 (0.0-0.2) % PT 13.9 (11.1-14.7) Seconds INR 1.1 APTT 30.3 (22.3-36.8) Seconds Sodium 137 (137-145) mmol/L Potassium 3.8 (3.4-5.0) mmol/L Chloride 105 (98-107) mmol/L Carbon Dioxide 25 (22-30) mmol/L Anion Gap 7 (4-12) mmol/L BUN 12 D (7-17) mg/dL Creatinine 0.74 (0.7-1.0) mg/dL Estim Creat Clear Calc 78 ml/min Estimated GFR > 60 (59 - ) Glucose 81 (65-110) mg/dL Calcium 9.1 (8.4-10.2) mg/dL Total Bilirubin 0.2 (0.2-1.3) mg/dL AST 24 (14-36) U/L ALT 12 (6-35) U/L Alkaline Phosphatase 48 (38-126) U/L Total Protein 7.0 (6.3-8.2) g/dL Albumin 4.2 (3.5-5.1) g/dL Lipase 219 (23-300) U/L Beta HCG, Quant 520.44 Cancelled mIU/ML Urine Color Yellow (Yellow) Urine Appearance Clear (Clear) Urine pH 7.5 (5.0-9.0) Ur Specific [place] 1.015 (1.001-1.035) Urine Protein Negative (Negative) mg/dL Urine Glucose (UA) Negative (Negative) mg/dL Urine Ketones Negative (Negative) mg/dL Ur Blood (Man) 2+ H (Negative) Urine Nitrate Negative (Negative) Urine Bilirubin Negative (Negative) Urine Urobilinogen 0.2 (<2.0) mg/dL Leukocyte Esterase Rfl Negative (Negative) [place]/UL POC Urine HCG, Qual (Negative) 02/18/25 Range/Units 01:40 WBC (4.5-10.0) K/mm3 RBC (4.2-5.4) M/mm3 Hgb (12.0-15.0) g/dL Hct (37.0-47.0) % MCV (80-100) fl MCH (26-34) pg MCHC (32-36) g/dl RDW (11.5-14.5) % Plt Count (150-375) k/mm3 MPV (7.4-10.4) fl Immature Gran % (Auto) (0-0.5) % Neut % (Auto) (45.5-73.1) % Lymph % (Auto) (18.3-44.2) % [place] % (Auto) (2.6-8.5) % Eos % (Auto) (0-4.4) % Baso % (Auto) (0.2-1.2) % Lymph # (Auto) (0.9-3.2) K/mm3 [place] # (Auto) (0.1-0.6) K/mm3 Eos # (Auto) (0-0.3) K/mm3 Baso # (Auto) (0.0-0.1) K/mm3 Abs Immat Gran (auto) (0.00-0.031) K/mm3 Absolute Neuts (auto) (1.3-6.7) K/mm3 Absolute Nucleated RBC (0.0-0.012) K/mm3 Nucleated RBC % (0.0-0.2) % PT (11.1-14.7) Seconds INR APTT (22.3-36.8) Seconds Sodium (137-145) mmol/L Potassium (3.4-5.0) mmol/L Chloride (98-107) mmol/L Carbon Dioxide (22-30) mmol/L Anion Gap (4-12) mmol/L BUN (7-17) mg/dL Creatinine (0.7-1.0) mg/dL Estim Creat Clear Calc ml/min Estimated GFR (59 - ) Glucose (65-110) mg/dL Calcium (8.4-10.2) mg/dL Total Bilirubin (0.2-1.3) mg/dL AST (14-36) U/L ALT (6-35) U/L Alkaline Phosphatase (38-126) U/L Total Protein (6.3-8.2) g/dL Albumin (3.5-5.1) g/dL Lipase (23-300) U/L Beta HCG, Quant mIU/ML Urine Color (Yellow) Urine Appearance (Clear) Urine pH (5.0-9.0) Ur Specific [place] (1.001-1.035) Urine Protein (Negative) mg/dL Urine Glucose (UA) (Negative) mg/dL Urine Ketones (Negative) mg/dL Ur Blood (Man) (Negative) Urine Nitrate (Negative) Urine Bilirubin (Negative) Urine Urobilinogen (<2.0) mg/dL Leukocyte Esterase Rfl (Negative) FAT[place]/UL POC Urine HCG, Qual Positive (Negative) <Sang Winslow MD - Last Filed: 02/18/25 03:31> Discharge Plan Discharge Clinical Impression: Retained products of conception, Abnormal pelvic ultrasound <MILLER Quiles Last Filed: 02/18/25 02:57> Patient Disposition: Still a Patient <MILLER Quiles Last Filed: 02/18/25 02:57> Condition: Stable <MILLER Quiles Last Filed: 02/18/25 02:57> Patient Language: Romansh <MILLER Quiles Last Filed: 02/18/25 02:57> Prescriptions: No Action ondansetron 4 mg tablet,disintegrating 4 mg PO Q6H PRN (Reason: nausea and vomiting) Qty: 10 0RF ibuprofen 600 mg tablet 600 mg PO Q6H PRN (Reason: fever or pain) Qty: 14 0RF azithromycin 500 mg tablet See Rx Instructions .ROUTE .COMPLEX 5 Days Qty: 5 0RF Rx Instructions: For 500 mg dose pack: take 500 mg once daily for 3 days cephalexin 500 mg capsule 500 mg PO Q12H 7 Days Qty: 14 0RF pantoprazole [Protonix] 40 mg tablet,delayed release (DR/EC) 40 mg PO HS 28 Days Qty: 28 0RF ondansetron 4 mg tablet,disintegrating 4 mg PO Q8H PRN (Reason: nausea and vomiting) Qty: 10 0RF prednisone 20 mg tablet 60 mg PO DAILY 5 Days Qty: 15 0RF albuterol sulfate 90 mcg/actuation aero powdr breath act w/sensor 1 inh INHALATION Q4-6H PRN (Reason: shortness of breath or wheezing) Qty: 1 0RF azithromycin 500 mg tablet See Rx Instructions .ROUTE .COMPLEX 5 Days Qty: 5 0RF Rx Instructions: take 500 mg today (day 1), then 250 mg for 4 days (days 2-5) <MILLER Quiles Last Filed: 02/18/25 02:57> Follow-up/Referrals: UNKNOWN,DOCTOR [Primary Care Provider] <Eulalia Goyal PA-C - Last Filed: 02/18/25 02:57>
[2025-02-18] MEDS: SODIUM CHLORIDE 0.9% IV 1,000 ML 999 ML IV CONT (00:35)
[2025-02-18] MEDS: ONDANSETRON INJ 4 MG/2 ML VIAL IV PUSH ×2 (00:36→09:28)
[2025-02-18] MEDS: KETOROLAC 30 MG/ML VIAL (*BKC) IV PUSH ×2 (00:37→11:48)
[2025-02-18 00:40] LABS: Hematocrit 30.3 % (37.0-47.0); Hemoglobin 9.8 g/dL (12.0-15.0); Immature Granulocyte Percent A 0.2 % (0-0.5); Lymphocytes Absolute Auto 3.32 K/mm3 (0.9-3.2); Mean Corpuscular HGB Conc 32.3 g/dl (32-36); Mean Corpuscular Hemoglobin 29.3 pg (26-34); Mean Corpuscular Volume 90.7 fl (80-100); Nucleated Red Blood Cells Absolute Auto 0.000 K/mm3 (0.0-0.012); Nucleated Red Blood Cells Perc 0.0 % (0.0-0.2); Platelet Count Result 372 k/mm3 (150-375); Red Blood Count 3.34 M/mm3 (4.2-5.4); White Blood Count 10.3 K/mm3 (4.5-10.0)
[2025-02-18 00:52] LABS: Alanine Aminotransferase 12 U/L (6-35); Albumin Level 4.2 g/dL (3.5-5.1); Alkaline Phosphatase 48 U/L (38-126); Anion Gap 7 mmol/L (4-12); Aspartate Amino Transferase 24 U/L (14-36); Bilirubin,Total 0.2 mg/dL (0.2-1.3); Blood Urea Nitrogen 12 mg/dL (7-17); Calcium 9.1 mg/dL (8.4-10.2); Carbon Dioxide 25 mmol/L (22-30); Chloride 105 mmol/L (98-107); Estimated CRCL calculation 78 ml/min; Estimated Glomerular Filt Rate > 60; Glucose 81 mg/dL (65-110); Lipase 219 U/L (23-300); Potassium 3.8 mmol/L (3.4-5.0); Sodium 137 mmol/L (137-145); Total Protein 7.0 g/dL (6.3-8.2)
[2025-02-18 00:57] LABS: INR 1.1; Prothrombin Time 13.9 Seconds (11.1-14.7)
[2025-02-18 00:58] LABS: Partial Thromboplastin Time 30.3 Seconds (22.3-36.8)
[2025-02-18 01:42] LABS: BEDSIDEPREGUCG Positive (Negative)
[2025-02-18 02:07] LABS: Add Urine Microscopic? YES; Appearance Urine Clear (Clear); Glucose Urine UA Negative (Negative); Leukocyte Esterase Ur Negative LEU/UL (Negative); Nitrate Urine Negative (Negative); Specific Grav Ur 1.015 (1.001-1.035)
[2025-02-18 02:26] LABS: Beta HCG Quantitative 520.44 mIU/ML
--- NOTE | 2025-02-18 03:53 | PC.NURSE ---
pt refusing Methotrexate at this time. pt educated about risk and benefits of the medication. pt states she will wait to see if there is an ectopic to take it and states she does not want to take anything that is not necessary.
[2025-02-18] MEDS: cefoTEtan DISODIUM INJ 2 GM in DEXTROSE 5% IN WATER 50 ML IVPB (04:00)
[2025-02-18] MEDS: SODIUM CHLORIDE 0.9% IV 1,000 ML 125 ML IV CONT (04:33)
--- NOTE | 2025-02-18 04:33 | PC.NURSE ---
Pt stated pain 7/10 cramping/pelvic pain. Pt denies any medication @ this time. Pt states bleeding has improved. Pt denies methotrexate @ this time. Discussed plan of care, pt NPO. Dr to come see pt in the AM. Lab redraw @ 0600. Pt agreed with plan of care. Call light within reach. Bed locked in low position, side rails up x2.
[2025-02-18] MEDS: DOXYCYCLINE IV 100 MG in SODIUM CHLORIDE 0.9% IV 100 ML IVPB (05:26)
[2025-02-18 05:29] LABS: Hematocrit 27.2 % (37.0-47.0); Hemoglobin 8.8 g/dL (12.0-15.0)
--- NOTE | 2025-02-18 07:06 | P.HP_ITS ---
H&P: HPI History of Present Illness Date/Time: 02/18/25 07:06 Chief Complaint: Vaginal bleeding following termination Narrative: This is a 29-year-old 4 para 1 for undertook the pill couple weeks ago followed by suction D&C 8 days ago she came in complaining and bleeding in severe pain ultrasound showed debris in the uterus and possibly a right ectopic with but appears to be hematoma peritoneum she was watched through the night her hemoglobin has dropped from 9 8-8.8. She continues with pelvic pain and suspected ectopic I have offered her laparoscopy right salpingostomy possible right salpingectomy possible right salpingo- oophorectomy suction D&C risks and benefits reviewed including but not exclusive of , aspiration pneumonia, bleeding, transfusion, perforation injury to bowel, bladder, ureters, or other internal organs with need for open laparotomy. She had all questions answered and agreed Review of Systems Review of Systems: All systems reviewed & are unremarkable except as noted in HPI and below PMFSH Past Medical History Medical History Asthma Social History Social History Smoking status: Current every day smoker Tobacco type: e-cigarettes/vaping Second hand tobacco smoke exposure: Yes Alcohol intake: never Substance use: never Living arrangements: with family Gender identity (if verbalized by the patient): Female Meds Home Medications and Allergies Home Medications ?Medication ?Instructions ?Recorded ?Confirmed ?Type albuterol sulfate 90 mcg/actuation 1 inh inhalation Q4 -6H PRN 09/04/19 Rx breath activated powder shortness of breath or wheez ing #1 inhaler,sensor ea azithromycin 500 mg tablet See Rx Instructions PO .COM PLEX 5 09/04/19 Rx days #5 tabs prednisone 20 mg tablet 60 mg (3 x 20 mg) PO DAILY 5 days 09/04/19 Rx #15 tabs azithromycin 500 mg tablet See Rx Instructions PO .COM PLEX 5 08/26/22 Rx days #5 tabs ibuprofen 600 mg tablet 600 mg PO Q6H PRN fever or p ain 08/26/22 Rx #14 tabs ondansetron 4 mg disintegrating 4 mg PO Q6H PRN nausea and 08/26/22 Rx tablet vomiting #10 tabs cephalexin 500 mg capsule 500 mg PO Q12H 7 days #14 ca ps 11/09/24 Rx ondansetron 4 mg disintegrating 4 mg PO Q8H PRN nausea and 11/09/24 Rx tablet vomiting #10 tabs pantoprazole 40 mg tablet,delayed 40 mg PO HS 4 weeks #28 tabs 11/09/24 Rx release (Protonix) Allergies Allergy/AdvReac Type Severity Reaction Status Date / Time Penicillins Allergy Unknown UNKNOWN Verified 11/09/24 07:25 REACTION latex Allergy Hives Verified 11/09/24 07:25 Vital Signs Vital Signs - 24 hr 02/18/25 00:18 02/18/25 03:10 02/18/25 04:03 Temperature 97.7 F Pulse Rate 86 73 73 Respiratory Rate 19 15 15 Blood Pressure 107/86 108/82 108/82 Pulse Oximetry 100 100 100 02/18/25 04:09 02/18/25 04:09 02/18/25 04:10 Temperature Pulse Rate 58 L Respiratory Rate Blood Pressure 114/70 Pulse Oximetry 92 93 02/18/25 04:14 02/18/25 04:19 02/18/25 04:24 Temperature Pulse Rate Respiratory Rate Blood Pressure Pulse Oximetry 99 99 100 02/18/25 04:25 02/18/25 04:30 02/18/25 04:35 Temperature Pulse Rate Respiratory Rate Blood Pressure Pulse Oximetry 98 100 99 02/18/25 04:40 02/18/25 04:45 02/18/25 04:47 Temperature 98.1 F Pulse Rate Respiratory Rate Blood Pressure Pulse Oximetry 99 100 02/18/25 04:50 02/18/25 04:55 02/18/25 05:00 Temperature Pulse Rate 72 Respiratory Rate Blood Pressure 106/72 Pulse Oximetry 99 100 100 02/18/25 05:05 02/18/25 05:06 02/18/25 05:06 Temperature Pulse Rate Respiratory Rate Blood Pressure Pulse Oximetry 100 92 86 L 02/18/25 05:09 02/18/25 05:14 02/18/25 05:19 Temperature Pulse Rate Respiratory Rate Blood Pressure Pulse Oximetry 100 100 100 02/18/25 05:24 02/18/25 05:29 02/18/25 05:34 Temperature Pulse Rate Respiratory Rate Blood Pressure Pulse Oximetry 100 100 99 02/18/25 05:39 02/18/25 05:44 02/18/25 05:49 Temperature Pulse Rate Respiratory Rate Blood Pressure Pulse Oximetry 100 100 100 02/18/25 05:54 02/18/25 05:59 02/18/25 06:04 Temperature Pulse Rate Respiratory Rate Blood Pressure Pulse Oximetry 100 100 100 02/18/25 06:09 02/18/25 06:14 02/18/25 06:19 Temperature Pulse Rate Respiratory Rate Blood Pressure Pulse Oximetry 100 100 98 02/18/25 06:24 02/18/25 06:29 02/18/25 06:34 Temperature Pulse Rate Respiratory Rate Blood Pressure Pulse Oximetry 97 97 97 02/18/25 06:39 02/18/25 06:44 02/18/25 06:49 Temperature Pulse Rate Respiratory Rate Blood Pressure Pulse Oximetry 97 97 100 02/18/25 06:54 02/18/25 06:56 02/18/25 07:01 Temperature Pulse Rate Respiratory Rate Blood Pressure Pulse Oximetry 100 100 100 Exam Const: General: cooperative, healthy appearing and uncomfortable Nutritional Appearance: average body habitus HENMT: Head: normal to inspection Resp: Effort & Inspection: normal respiratory effort Cardio: Rate: regular rate Rhythm: regular rhythm Heart sounds: S1 normal heart sound present and S2 normal heart sound present GI: Inspection: distended GI Palp: Yes abdominal tenderness : External Female Exam: normal external appearance Speculum Exam - Vagina: normal appearance of the vagina and vaginal bleeding Speculum Exam - Cervix: normal appearance of the cervix Bimanual Exam- Adnexa, other: tender bilaterally H&P: Results Labs Labs: Short CBC 02/18/25 02/18/25 Range/Units 00:26 05:11 WBC 10.3 H (4.5-10.0) K/mm3 Hgb 9.8 L D 8.8 L (12.0-15.0) g/dL Hct 30.3 L 27.2 L (37.0-47.0) % Plt Count 372 (150-375) k/mm3 BMP 02/18/25 00:26 Sodium 137 Potassium 3.8 Chloride 105 Carbon Dioxide 25 BUN 12 D Creatinine 0.74 Glucose 81 Calcium 9.1 Liver Function 02/18/25 Range/Units 00:26 Total Bilirubin 0.2 (0.2-1.3) mg/dL AST 24 (14-36) U/L ALT 12 (6-35) U/L Alkaline Phosphatase 48 (38-126) U/L Albumin 4.2 (3.5-5.1) g/dL Urine 02/18/25 Range/Units 01:39 Urine Color Yellow (Yellow) Urine Appearance Clear (Clear) Urine pH 7.5 (5.0-9.0) Ur Specific [place] 1.015 (1.001-1.035) Urine Protein Negative (Negative) mg/dL Urine Glucose (UA) Negative (Negative) mg/dL Assessment and Plan Assessment and plan (1) Retained products of conception: Status: Acute (2) Abnormal pelvic ultrasound: Code(s): R93.89 - Abnormal findings on diagnostic imaging of other specified body structures Status: Acute Plan Patient agrees to suction D and C as well as laparoscopy and possible right salpinx just to tx versus right salpingectomy versus right salpingo-oophorectomy
--- NOTE | 2025-02-18 07:13 | WPDHPUPDATE1 ---
History and Physical Update Update Date/Time: 02/18/25 07:13 History and Physical has been reviewed, including an updated exam of the patient. There are NO changes in the patient's condition. Risks, benefits, and alternatives have been discussed and questions answered. Patient agrees to proceed with procedure.
--- NOTE | 2025-02-18 07:31 | P.PNAN_ITS ---
Anes - Eval Pre Procedure Procedure: diagnostic laparoscopy, D&C Date/Time: 02/18/25 07:31 Surgeon: Malika Arrieta Preop Diagnosis: Missed AB Pre Op Diagnosis: Retained products of conception Patient Data Age: 29 Gender: F Height: 1.7 m Weight: 51 kg Last Vital Signs Temp 98.1 F 02/18/25 04:47 Pulse 64 02/18/25 07:19 Resp 15 02/18/25 04:03 BP 105/73 02/18/25 07:19 Pulse Ox 97 02/18/25 07:23 Allergies Allergy/AdvReac Type Severity Reaction Status Date / Time Penicillins Allergy Unknown UNKNOWN Verified 11/09/24 07:25 REACTION latex Allergy Hives Verified 11/09/24 07:25 Home Medications ?Medication ?Instructions ?Recorded ?Confirmed ?Type albuterol sulfate 90 mcg/actuation 1 inh inhalation Q4 -6H PRN 09/04/19 Rx breath activated powder shortness of breath or wheez ing #1 inhaler,sensor ea azithromycin 500 mg tablet See Rx Instructions PO .COM PLEX 5 09/04/19 Rx days #5 tabs prednisone 20 mg tablet 60 mg (3 x 20 mg) PO DAILY 5 days 09/04/19 Rx #15 tabs azithromycin 500 mg tablet See Rx Instructions PO .COM PLEX 5 08/26/22 Rx days #5 tabs ibuprofen 600 mg tablet 600 mg PO Q6H PRN fever or p ain 08/26/22 Rx #14 tabs ondansetron 4 mg disintegrating 4 mg PO Q6H PRN nausea and 08/26/22 Rx tablet vomiting #10 tabs cephalexin 500 mg capsule 500 mg PO Q12H 7 days #14 ca ps 11/09/24 Rx ondansetron 4 mg disintegrating 4 mg PO Q8H PRN nausea and 11/09/24 Rx tablet vomiting #10 tabs pantoprazole 40 mg tablet,delayed 40 mg PO HS 4 weeks #28 tabs 11/09/24 Rx release (Protonix) hydrocodone 5 mg-acetaminophen 325 1 tablet PO Q4H PRN pain #20 tabs 02/18/25 Rx mg tablet Laboratory Tests 02/18/25 02/18/25 02/18/25 00:26 00:29 00:35 WBC 10.3 H K/mm3 (4.5-10.0) RBC 3.34 L M/mm3 (4.2-5.4) Hgb 9.8 L D g/dL (12.0-15.0) Hct 30.3 L % (37.0-47.0) MCV 90.7 fl (80-100) MCH 29.3 pg (26-34) MCHC 32.3 g/dl (32-36) RDW 13.1 % (11.5-14.5) Plt Count 372 k/mm3 (150-375) MPV 9.5 fl (7.4-10.4) Immature Gran % (Auto) 0.2 % (0-0.5) Neut % (Auto) 54.6 % (45.5-73.1) Lymph % (Auto) 32.4 % (18.3-44.2) [place] % (Auto) 7.2 % (2.6-8.5) Eos % (Auto) 4.7 H % (0-4.4) Baso % (Auto) 0.9 % (0.2-1.2) Lymph # (Auto) 3.32 H K/mm3 (0.9-3.2) [place] # (Auto) 0.7 H K/mm3 (0.1-0.6) Eos # (Auto) 0.5 H K/mm3 (0-0.3) Baso # (Auto) 0.1 K/mm3 (0.0-0.1) Abs Immat Gran (auto) 0.02 K/mm3 (0.00-0.031) Absolute Neuts (auto) 5.6 K/mm3 (1.3-6.7) Absolute Nucleated RBC 0.000 K/mm3 (0.0-0.012) Nucleated RBC % 0.0 % (0.0-0.2) PT 13.9 Seconds (11.1-14.7) INR 1.1 APTT 30.3 Seconds (22.3-36.8) Sodium 137 mmol/L (137-145) Potassium 3.8 mmol/L (3.4-5.0) Chloride 105 mmol/L (98-107) Carbon Dioxide 25 mmol/L (22-30) Anion Gap 7 mmol/L (4-12) BUN 12 D mg/dL (7-17) Creatinine 0.74 mg/dL (0.7-1.0) Estim Creat Clear Calc 78 ml/min Estimated GFR > 60 (59 - ) Glucose 81 mg/dL (65-110) Calcium 9.1 mg/dL (8.4-10.2) Total Bilirubin 0.2 mg/dL (0.2-1.3) AST 24 U/L (14-36) ALT 12 U/L (6-35) Alkaline Phosphatase 48 U/L (38-126) Total Protein 7.0 g/dL (6.3-8.2) Albumin 4.2 g/dL (3.5-5.1) Lipase 219 U/L (23-300) Beta HCG, Quant 520.44 mIU/ML Cancelled Urine Color Urine Appearance Urine pH Ur Specific [place] Urine Protein Urine Glucose (UA) Urine Ketones Ur Blood (Man) Urine Nitrate Urine Bilirubin Urine Urobilinogen Leukocyte Esterase Rfl POC Urine HCG, Qual Blood Type O Positive Antibody Screen Negative 02/18/25 02/18/25 02/18/25 01:39 01:40 05:11 WBC RBC Hgb 8.8 L g/dL (12.0-15.0) Hct 27.2 L % (37.0-47.0) MCV MCH MCHC RDW Plt Count MPV Immature Gran % (Auto) Neut % (Auto) Lymph % (Auto) [place] % (Auto) Eos % (Auto) Baso % (Auto) Lymph # (Auto) [place] # (Auto) Eos # (Auto) Baso # (Auto) Abs Immat Gran (auto) Absolute Neuts (auto) Absolute Nucleated RBC Nucleated RBC % PT INR APTT Sodium Potassium Chloride Carbon Dioxide Anion Gap BUN Creatinine Estim Creat Clear Calc Estimated GFR Glucose Calcium Total Bilirubin AST ALT Alkaline Phosphatase Total Protein Albumin Lipase Beta HCG, Quant Urine Color Yellow (Yellow) Urine Appearance Clear (Clear) Urine pH 7.5 (5.0-9.0) Ur Specific [place] 1.015 (1.001-1.035) Urine Protein Negative mg/dL (Negative) Urine Glucose (UA) Negative mg/dL (Negative) Urine Ketones Negative mg/dL (Negative) Ur Blood (Man) 2+ H (Negative) Urine Nitrate Negative (Negative) Urine Bilirubin Negative (Negative) Urine Urobilinogen 0.2 mg/dL (<2.0) Leukocyte Esterase Rfl Negative [place]/UL (Negative) POC Urine HCG, Qual Positive (Negative) Blood Type Antibody Screen Patient hx anesthesia problems: none Family hx anesthesia problems: none Results Review: All pre-operative results and documents have been reviewed as part of the pre- operative evaluation. [facility] Past Medical History Medical History Asthma Social History Social History Smoking status: Current every day smoker Tobacco type: e-cigarettes/vaping Second hand tobacco smoke exposure: Yes Alcohol intake: never Substance use: never Living arrangements: with family Gender identity (if verbalized by the patient): Female Exam Day of Procedure 02/18/25 07:31
[2025-02-18] MEDS: ceFAZolin 2 GM in SODIUM CHLORIDE 0.9% IV 50 ML 100 ML IVPB (08:05)
--- NOTE | 2025-02-18 08:10 | PC.NURSE ---
PT to pre op per stretcher.
--- NOTE | 2025-02-18 08:23 | P.PNAN_ITS ---
Anes - Eval Final PreProcedure Day of Procedure 02/18/25 08:23 Patient weight: normal Heart: regular rate and rhythm Lungs: clear to auscultation Airway: Mallampati scale class II Neurological: alert and oriented Last oral intake: >/= 8 hours ASA classification: II Emergent: yes Anesthetic plan: proceed Results Review: All pre-operative results and documents have been reviewed as part of the pre- operative evaluation. Informed Consent: The patient's anesthetic plan and its attendant risks and benefits were discussed with the patient/family/POA. Questions were solicited and answers provided to the satisfaction of the patient/family/POA.
--- NOTE | 2025-02-18 09:12 | S_PTH ---
PATIENT: Kathy Valderrama LOC: [facility] U#:[id number] AGE/SX: 29/F ROOM: RE02/18/[address]: Lavelle Arrieta MD : [id number] BED: DIS: 02/18/2025 SPEC #: [id number] RECD: 02/20/25 07:52 STATUS: ASTER REQ #: [id number] YANCY: 02/18/25 09:[address]: Lavelle Akins DEPT: [facility] Surgical RECD BY: Nell Moreno ENTERED: 02/20/25 07:52 SP TYPE: Surgical OTHR DR: MEDICATION TECHNICIAN PHYSICIAN Farhat Srinivasan MD Tissues: A - Uterine Contents B - Ectopic Procedures: Hematoxylin and Eosin Stain Gross and Microscopic Level 4
--- NOTE | 2025-02-18 09:20 | P.OP_ITS ---
Procedure Note - Detailed Date of Procedure 02/18/25 Pre-op Diagnosis Retained products of conception/possible ectopic Post-op Diagnosis Same Procedure Performed Diagnosis thick laparoscopy with destruction of endometriosis right salpingo stomy/suction dilatation curettage Surgeon Lavelle Arrieta MD Anesthesia General Indications 29-year-old female admitted through the ER with status post termination with retained products conception in fluid in the abdomen with severe abdominal pain Findings The right fallopian tube was enlarged opening but did not appear to had definite have definitely have an ectopic. Endometriosis was seen in the cul-de-sac. [id number] of serosanguineous fluid in the cul-de-sac. On suction D and C this uterus was 10cm deep with tissue definitely consistent with products of conception Description of Procedure The patient was prepped and draped in the normal sterile fashion placed in the dorsal lithotomy position. Under excellent general trach anesthesia weighted speculum placed posterior fornix vagina. Anterior lip of the cervix grasped with single-tooth tenaculum. Braswell's cannula inserted the cervix and attached to the single-tooth to be used later for uterine manipulation. Bladder was emptied of about 250cc of clear urine. The weighted speculum was removed the gloves were changed. An infraumbilical incision made the Veress needle passed in the abdomen. Abdomen filled with CO2 gas [id number]. The 5mm trocar advanced under direct visualization with operative scope no injury seen. Patient placed in Trendelenburg and a suprapubic incision made. The 5mm trocar advanced under direct visualization assuring no injury. Right lower quadrant incision made in the 5mm trocar advanced under direct visualization assuring no injury. There was [id number] of serosanguineous fluid in the cul-de-sac back and this was removed multiple areas of endometriosis were seen along the right left uterosacral ligament. The right fallopian tube at about 2[address] the ampullary portion was enlarged after this reason the linear incision was made but it did not appear to be ectopic present the small amount of tissue that was present was removed and passed off. Hemostasis was assured the areas of endometriosis were then point cauterized at 35 w per 2nd with monopolar cautery. Irrigation undertaken until clear and hemostasis was assured. The gas removed from the abdomen and the trocars removed the incisions closed with 4 Monocryl and glue. Attention was turned the suction D& C. The uterus sounded 10cm. Serial dilatation fragmented dilators performed followed by passes the 10. Suction curette moderate amount of products conception removed and when a good grating sound was heard the 1st withdrawn. The patient was awakened went recovery in satisfactory condition. All sponge, needle, instrument counts were correct. There were no complications Estimated Blood Loss 5 Drains No Packing No Pathology Yes Complications No immediate complications Condition Stable Disposition PACU
--- NOTE | 2025-02-18 09:24 | P.DS_ITS ---
DS: Admitting Diagnosis Discharge Date 02/19/2020 Admitting Diagnosis Incomplete and suspected ectopic DS: Discharge Diagnosis Discharge Diagnosis (1) Incomplete : Code(s): O03.4 - Incomplete spontaneous without complication Status: Acute DS: Summary Hospital Course Reason for hospitalization: Patient was admitted through the ER with severe pelvic pain and dropping HCGs. She had had a previous pill taken 3 weeks prior for which did not complete and then underwent suction D&C to admission hemoglobin drops and eating and there was free fluid and questionable ectopic in the right 6 she was taken to the operating room underwent laparoscopy with salpingostomy and destruction of endometriosis with removal of serous sanguinous fluid from cul-de-sac she also underwent suction dilatation curettage Hospital Course: Patient went recovery and had no complications she was eating voiding without difficulty passing gas and generally without complaints Time Spent with Patient Time attestation: Total time spent providing and/or coordinating discharge services: Exam Const: General: cooperative, healthy appearing and uncomfortable Nutritional Appearance: average body habitus HENMT: Head: normal to inspection Resp: Effort & Inspection: normal respiratory effort Cardio: Rate: regular rate Rhythm: regular rhythm Heart sounds: S1 normal heart sound present and S2 normal heart sound present GI: Inspection: distended GI Palp: Yes abdominal tenderness : External Female Exam: normal external appearance Speculum Exam - Vagina: normal appearance of the vagina and vaginal bleeding Speculum Exam - Cervix: normal appearance of the cervix Bimanual Exam- Adnexa, other: tender bilaterally DS: Data Data Completed and Pending Pending studies at discharge: Pending at discharge 02/18/25 09:11 Surgical [PTH] Routine 02/18/25 09:12 Surgical [PTH] Routine Labs on day of discharge: Labs from last 24 hours 02/18/25 02/18/25 02/18/25 05:11 01:40 01:39 WBC RBC Hgb 8.8 L Hct 27.2 L MCV MCH MCHC RDW Plt Count MPV Immature Gran % (Auto) Neut % (Auto) Lymph % (Auto) [place] % (Auto) Eos % (Auto) Baso % (Auto) Lymph # (Auto) [place] # (Auto) Eos # (Auto) Baso # (Auto) Abs Immat Gran (auto) Absolute Neuts (auto) Absolute Nucleated RBC Nucleated RBC % PT INR APTT Sodium Potassium Chloride Carbon Dioxide Anion Gap BUN Creatinine Estim Creat Clear Calc Estimated GFR Glucose Calcium Total Bilirubin AST ALT Alkaline Phosphatase Total Protein Albumin Lipase Beta HCG, Quant Urine Color Yellow Urine Appearance Clear Urine pH 7.5 Ur Specific [place] 1.015 Urine Protein Negative Urine Glucose (UA) Negative Urine Ketones Negative Ur Blood (Man) 2+ H Urine Nitrate Negative Urine Bilirubin Negative Urine Urobilinogen 0.2 Leukocyte Esterase Rfl Negative POC Urine HCG, Qual Positive Blood Type Antibody Screen 02/18/25 02/18/25 02/18/25 00:35 00:29 00:26 WBC 10.3 H RBC 3.34 L Hgb 9.8 L D Hct 30.3 L MCV 90.7 MCH 29.3 MCHC 32.3 RDW 13.1 Plt Count 372 MPV 9.5 Immature Gran % (Auto) 0.2 Neut % (Auto) 54.6 Lymph % (Auto) 32.4 [place] % (Auto) 7.2 Eos % (Auto) 4.7 H Baso % (Auto) 0.9 Lymph # (Auto) 3.32 H [place] # (Auto) 0.7 H Eos # (Auto) 0.5 H Baso # (Auto) 0.1 Abs Immat Gran (auto) 0.02 Absolute Neuts (auto) 5.6 Absolute Nucleated RBC 0.000 Nucleated RBC % 0.0 PT 13.9 INR 1.1 APTT 30.3 Sodium 137 Potassium 3.8 Chloride 105 Carbon Dioxide 25 Anion Gap 7 BUN 12 D Creatinine 0.74 Estim Creat Clear Calc 78 Estimated GFR > 60 Glucose 81 Calcium 9.1 Total Bilirubin 0.2 AST 24 ALT 12 Alkaline Phosphatase 48 Total Protein 7.0 Albumin 4.2 Lipase 219 Beta HCG, Quant Cancelled 520.44 Urine Color Urine Appearance Urine pH Ur Specific [place] Urine Protein Urine Glucose (UA) Urine Ketones Ur Blood (Man) Urine Nitrate Urine Bilirubin Urine Urobilinogen Leukocyte Esterase Rfl POC Urine HCG, Qual Blood Type O Positive Antibody Screen Negative Discharge Plan Discharge Attending physician on discharge: Lavelle Akins Consulting providers: Farhat Srinivasan Discharging Clinician: Lavelle Akins Patient Disposition: Home Activity: may shower, no straining and pelvic rest Diet: heart healthy Wound Care Instructions: follow printed instructions Patient Instructions: Antibiotic Form Patient Language: Maltese Stand Alone Forms: General Discharge Information Follow-up/Referrals: Lavelle Akins MD [Physician, HAND WORKER] Discharge Medications: New hydrocodone-acetaminophen 5-325 mg tablet 1 tablet PO Q4H PRN (Reason: pain) Qty: 20 0RF Continued ondansetron 4 mg tablet,disintegrating 4 mg PO Q6H PRN (Reason: nausea and vomiting) Qty: 10 0RF ibuprofen 600 mg tablet 600 mg PO Q6H PRN (Reason: fever or pain) Qty: 14 0RF azithromycin 500 mg tablet See Rx Instructions .ROUTE .COMPLEX 5 Days Qty: 5 0RF Rx Instructions: For 500 mg dose pack: take 500 mg once daily for 3 days cephalexin 500 mg capsule 500 mg PO Q12H 7 Days Qty: 14 0RF pantoprazole [Protonix] 40 mg tablet,delayed release (DR/EC) 40 mg PO HS 28 Days Qty: 28 0RF ondansetron 4 mg tablet,disintegrating 4 mg PO Q8H PRN (Reason: nausea and vomiting) Qty: 10 0RF prednisone 20 mg tablet 60 mg PO DAILY 5 Days Qty: 15 0RF albuterol sulfate 90 mcg/actuation aero powdr breath act w/sensor 1 inh INHALATION Q4-6H PRN (Reason: shortness of breath or wheezing) Qty: 1 0RF azithromycin 500 mg tablet See Rx Instructions .ROUTE .COMPLEX 5 Days Qty: 5 0RF Rx Instructions: take 500 mg today (day 1), then 250 mg for 4 days (days 2-5) Date of admission: 02/18/25 02:55 Primary Care Provider: UNKNOWN,DOCTOR Admitting Provider: Lavelle Akins Attending physician on admission: Lavelle Akins Condition: Stable
[2025-02-18] MEDS: fentaNYL CITRATE INJ (*CRX) 100 MCG/2 ML VIAL 25 MCG IV PUSH ×3 (09:33→09:46)
[2025-02-18] MEDS: LACTATED RINGERS 1,000 ML 30 ML IV CONT (09:37)
--- NOTE | 2025-02-18 11:30 | PC.NURSE ---
Called Dr. Malika Arrieta with pt update. Pt complaining of pain of 10 on 1-10 scale, while using her phone. Orders received for Toradol and Phenergan IV.
[2025-02-18] MEDS: PROMETHAZINE HCL 25 MG/ML AMPUL 12.5 MG IV PUSH (11:48)
--- NOTE | 2025-02-18 16:25 | PC.NURSE ---
D/C instructions given. Pt waiting for ride.
--- NOTE | 2025-02-22 08:15 | SUR.PHASEI ---
Late entry-Fentanyl 25mg IVP given 02/18/25 @ 0941.
== END 2025-02-18 17:30 | disposition home or self-care (01) ==
LOC: ANHED 03:04 → ANHOBPP 07:13 → ANHSURGERY 02-20 07:10 → ANHOBPP 02-20 07:11
PROVIDERS: Emergency Provider Physician Assistant; Visit Provider Obstetrics & Gynecology
PROC: (CPT 49320; principal; 2025-02-18 09:00)
PROC: (CPT 58662; 2025-02-18 09:00)
DX: O03.4 Incomplete spontaneous abortion without complication (principal); N80.329 Endometriosis of the posterior cul-de-sac, unspecified depth; N83.8 Other noninflammatory disorders of ovary, fallopian tube and broad ligament; J45.909 Unspecified asthma, uncomplicated; F17.290 Nicotine dependence, other tobacco product, uncomplicated; Z79.51 Long term (current) use of inhaled steroids; Z79.52 Long term (current) use of systemic steroids; Z79.1 Long term (current) use of non-steroidal anti-inflammatories (NSAID); Z79.891 Long term (current) use of opiate analgesic
CPT/HCPCS: 58662; 59812; 58673; 36415; 76830; 76856; 80053; 81001; 81025; 83690; 84702; 85014; 85018; 85025; 85610; 85730; 86850; 86900; 86901; 87040; 88305; 96361; 96365; 96372; 96375; 96376; 99199; 99285; J0690; A9270; J0330; J1885; J2250; J2405; J2550; J2704; J3010; J7030; J7120

== ENCOUNTER 2025-05-01 16:40 | Observation (INO) | payer OTHER, SELFPAY ==
[2025-05-01] VITALS (12 sets, daily range): BP systolic 105–121; BP diastolic 76–90; PULSE 68–106; RESP 14–23; TEMP 36.6–36.8; O2SAT 100; BMI 16.8
--- NOTE | ~2025-05-01 | XR_ITS ---
EXAMINATION: XR chest 2V, 05/02/2025 7:45 VP PRODUCT MARKETING HISTORY: Right apical pneumothorax COMPARISON: No comparisons available. Technique: 2 views obtained. Findings: The lungs are clear, no effusion. No pneumothorax. Heart is normal size. Mediastinal and hilar contours are within normal limits. Bony thorax no acute abnormality. Impression: No acute cardiopulmonary abnormality. Reviewed, dictated and finalized at location P. PRODUCT MARKETING Impression: No acute cardiopulmonary abnormality.
--- NOTE | ~2025-05-01 | XR_ITS ---
XR chest 2V HOSTORY: SOB, RT LUNG COLLAPSED ON 04/17 COMPARISON:[ None] FINDINGS: Frontal and lateral views of the chest were obtained. The lungs are clear. The heart size is normal in size. Pulmonary vasculature is unremarkable. Osseous structures are intact. IMPRESSION: No acute lung findings.] [ ] Reviewed, dictated and finalized at location S. ESS MANAGER
--- NOTE | ~2025-05-01 | CT_ITS ---
EXAMINATION: CTA chest PE protocol DATE: 05/01/2025 21:03 BAND SHOVER INDICATION: Chest pain and shortness of breath. Elevated d-dimer. TECHNIQUE: Computed tomographic angiography (CTA) of the chest was performed with 100 mL Omnipaque-350 intravenous contrast. The dose-length product was 149.85 mGy-cm. Maximum intensity projection 3D-reconstructions of the aorta and other arteries were constructed by the technologist on a separate workstation. COMPARISON: None. FINDINGS: Study is technically adequate without evidence for pulmonary embolism. No thoracic lymphadenopathy. No significant pleural or pericardial effusion. Thyroid gland is unremarkable. No significant vascular abnormality. Heart size normal. No evidence for aortic aneurysm or dissection. Upper abdomen is unremarkable. Tiny right apical pneumothorax. No focal airspace consolidation to suggest pneumonia. No thoracic lymphadenopathy. IMPRESSION: 1. Tiny right apical pneumothorax. Reviewed, dictated and finalized at location O. SHOVER
--- NOTE | ~2025-05-01 | XR_ITS ---
EXAMINATION: XR chest 2V, 05/03/2025 8:50 MOTOR BUILDER ASSEMBLER HISTORY: elevated WBC COMPARISON: No comparisons available. Technique: 2 views obtained. Findings: The lungs are clear, no effusion. No pneumothorax. Heart is normal size. Mediastinal and hilar contours are within normal limits. Bony thorax no acute abnormality. Impression: No acute cardiopulmonary abnormality. Reviewed, dictated and finalized at location P. R BUILDER ASSEMBLER Impression: No acute cardiopulmonary abnormality.
--- NOTE | ~2025-05-01 | CT_ITS ---
EXAMINATION: CT abdomen pelvis wo con DATE: 05/02/2025 17:20 INDICATION: Abdominal pain TECHNIQUE: Computed tomography (CT) of the abdomen and pelvis was performed without intravenous contrast. The dose-length product was 168.11 mGy-cm. Automated exposure control and iterative reconstruction technique were employed. COMPARISON: CT dated 11/09/2024 FINDINGS: Lung bases unremarkable. Heart size normal. The liver, spleen, pancreas, adrenal glands and kidneys are unremarkable for limited noncontrast CT. No renal stones or hydronephrosis. High density material present in the gallbladder, possibly vicarious excretion of contrast. This is likely related to CT angiography of chest dated 05/01/2025. No free air or free fluid. No discrete pelvic masses. IMPRESSION: 1. No acute abdominal abnormality. Limited noncontrast study. Reviewed, dictated and finalized at location O. LESS DEVELOPMENT MANAGER
--- OUTSIDE RECORDS SUMMARY | 2025-05-01 16:42 | XMS_ITS | Clinical Summary ---
Author Organization [facility] Address [address] [place] [address] Care Team Providers Care Motor Equipment Commanding Officer Name Role Phone Bonifacio Sims MD Unavailable Ethan De Jesus MD Primary Care Provider [phone] Allergies Active Allergy Reactions Criticality Noted Date [...] on file Legal Sex Female 6:46 PM RFID ANALYST Gender Identity Not on file Sexual Orientation [...] montgomery, Bonifacio mitchell MD Complications:None Delivery Location:This [facility] ([facility]) Last Filed Vital Signs Vital Sign Reading Time Taken Comments Blood Pressure 102/63 07/14/2024 10:06 AM RFID ANALYST Pulse 62 07/14/2024 10:06 AM RFID ANALYST Temperature 36.6 C (97.9 F) 07/14/2024 10:06 AM RFID ANALYST Respiratory Rate 16 07/14/2024 7:53 AM RFID ANALYST Oxygen Saturation 100% 07/14/2024 10:06 AM RFID ANALYST Inhaled Oxygen Concentration - - Weight 52.2 kg (115 lb) 07/14/2024 7:53 AM RFID ANALYST Height 172.7 cm (5' 8) 07/14/2024 7:53 AM RFID ANALYST Body Mass Index 17.49 07/14/2024 7:53 AM RFID ANALYST Plan of Treatment Health Maintenance Due Date [...] HPV Vaccines Completed 04/20/2012, 04/30, 03/18/2010 Insurance [facility] IDPA IDPA Advance Directives For more information, please contact: [phone] * Full Code (Latest Code Status on File) Date Activated Date Inactivated Comments 02/04/2022 5:58 AM 02/06/2022 8:32 PM * Full Code Date Activated Date Inactivated Comments 02/03/2022 6:06 AM 02/04/2022 5:58 AM Full CPR in ca se of cardiopulmonary arrest Care Teams Motor Equipment Commanding Officer Relationship Specialty Start Date End Date Ethan De Jesus MD [address] [place] [address] [address] NIRMAL Alfaro [address] [place] [address] PCP - General Family Medicine 07/14/24 Bonifacio Sims MD [address] [place] [address] [address] NIRMAL Alfaro [address] [place] [address] Tint Layer Obstetrics and Gynecology 02/05/22
--- OUTSIDE RECORDS SUMMARY | 2025-05-01 16:42 | XMS_ITS | Encounter Summary ---
Author Organization [facility] Healthcare Address [address] [place] [address] Care Team Providers Care Mother Superior Name Role Phone Naima Larson MD Primary Care Provider [phone] Unknown, Notinfile Primary Care Provider Unavail able No, Physician Primary Care Provider [phone] Unknown, Notinfile Primary Care Provider Unavail able Bonifacio Sims MD Unavailable [phone] Ethan Pan MD Primary Care Provider [phone] Unknown, Notinfile Primary Care Provider Unavail able Ethan De Jesus MD Primary Care Provider [phone] Encounter Details Date Type Department Care Team (Late st Contact Info) Description 08/18/2019 Telephone [facility] Diagnostic Imaging [address] [place] [address] Enmanuel Reyes MD [address] [place] [address] [address] KINNEY [address] [facility] [address] [place] [address] Social History Tobacco Use Types Packs/Day Years Used Date Smoking Tobacco: Some Days Smokeless Tobacco: Never Comments:e cig Alcohol Use Standard Drinks/Week Comments Yes 0 (1 standard drink = 0.6 oz pur e alcohol) socially Comments No Sex and Gender Information Value Date Recorded Sex Assigned at Not on file Legal Sex Female 6:46 PM LOOPING INSPECTOR Gender Identity Not on file Sexual Orientation Not on file documented as of this encounter Plan of Treatment Not on file documented as of this encounter Visit Diagnoses Not on filedocumented in this encounter Additional Health Concerns Infection Onset Date Last Indicated Resolved Time COVID: Suspected 11/14/2021 11/14/2021 11/14/2021 3:24 PM CDT COVID: Suspected 06/21/2022 06/21/2022 06/22/2022 12:28 AM LOOPING INSPECTOR COVID19 06/21/2022 06/21/2022 07/01/2022 3:05 AM LOOPING INSPECTOR COVID: Suspected 08/30/2023 08/30/2023 08/30/2023 5:19 PM LOOPING INSPECTOR documented as of this encounter Care Teams Mother Superior Relationship Specialty Start Date End Date Naima Larson MD [address] [facility] [address] NIRMAL Alfaro [address] [address] PCP - General 06/15/19 09/09/21 Unknown, Notinfile PCP - General 09/10/21 11/06/21 No, Physician PCP - General 11/07/21 11/13/21 Unknown, Notinfile PCP - General 11/14/21 08/29/23 Ethan Pan MD [address] [place] [address] [place] [address] PCP - General Family Medicine 08/30/23 03/31/24 Unknown, Notinfile PCP - General 04/01/24 07/13/24 Ethan De Jesus MD [address] [place] [address] [place] [address] PCP - General Family Medicine 07/14/24 Bonifacio Sims MD [address] [place] [address] [address] NIRMAL Alfaro [facility] [address] [place] [address] Visual Merchandiser Obstetrics and Gynecology 02/05/22 documented as of this encounter
--- OUTSIDE RECORDS SUMMARY | 2025-05-01 16:43 | XMS_ITS | Clinical Summary ---
Author Organization [facility] Address [address] [place] [address] Phone Care Team Providers Care Group Leader [employer] Name Role Phone Unavailable Primary Care Provider [...] on file Legal Sex Female 2:48 PM SERVOMECHANISM ASSEMBLER Gender Identity Not on file Sexual Orientation Not on file Last Filed Vital Signs Vital Sign Reading Time Taken Comments Blood Pressure 109/68 07/28/2023 12:38 AM SERVOMECHANISM ASSEMBLER Pulse 81 07/28/2023 12:50 AM SERVOMECHANISM ASSEMBLER Temperature 36.9 C (98.4 F) 07/27/2023 7:43 PM SERVOMECHANISM ASSEMBLER Respiratory Rate 19 07/28/2023 12:50 AM SERVOMECHANISM ASSEMBLER Oxygen Saturation 100% 07/28/2023 12:50 AM SERVOMECHANISM ASSEMBLER Inhaled Oxygen Concentration - - Weight 54 kg (119 lb) 07/27/2023 7:43 PM SERVOMECHANISM ASSEMBLER Height 170.2 cm (5' 7) 07/27/2023 7:43 PM SERVOMECHANISM ASSEMBLER Body Mass Index 18.64 07/27/2023 7:43 PM SERVOMECHANISM ASSEMBLER Plan of Treatment Health Maintenance Due Date Last Done Comments DTAP/TDAP/TD VACCINES (1 - Tdap) 2014 HEPATITIS B VACCINES (1 of 3 - 19+ 3-dose series) 02/27 HPV/Cotest (21-29) 2016 HPV VACCINES (1 - 3-dose SCDM series) 2022 INFLUENZA VACCINE (#1) 2025 CERVICAL CANCER SCREENING 2025 HPV/Cotest (30-65) 2025 PAP SMEAR [address] [place] [place] [address] MEDICAID
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
--- NOTE | 2025-05-01 16:53 | ECG_ITS ---
Test Date: 2025-05-01 17:00:39 Measurements Intervals [facility] Rate: 100 P: 74 CT: 152 QRS: 47 QRSD: 73 T: 54 QT: 319 QTc: 412 Interpretive Statements SINUS TACHYCARDIA ABNORMAL RHYTHM ECG No previous ECG available for comparison Electronically Signed On 05-01-2025 18:46:11 BUSINESS OFFICE ASSISTANT by Richard Robles M.D.
--- NOTE | 2025-05-01 17:42 | ED.SOB ---
HPI - SOB/Dyspnea General Chief Complaint: Shortness of Breath/Dyspnea <Meredith Gomes PA-C - Last Filed: 05/02/25 00:01> Stated Complaint: SOB with pain on right side <MILLER Camacho Last Filed: 05/02/25 00:01> Time Seen by Provider: 05/01/25 17:05 <MILLER Camacho Last Filed: 05/02/25 00:01> Source: patient <MILLER Camacho Last Filed: 05/02/25 00:01> Mode of arrival: ambulatory <MILLER Camacho Last Filed: 05/02/25 00:01> Limitations: no limitations <MILLER Camacho Last Filed: 05/02/25 00:01> History of Present Illness HPI Narrative: This is a 30 year old female that presents to the ER for right sided chest pain, shortness of breath. Ongoing over the last couple of days. Reports recent right pneumothorax a couple of weeks prior. She was admitted at an [facility] for this. Does report she required a chest tube. Also reports a sore throat, cough. Denies fevers. <MILLER Camacho Last Filed: 05/02/25 00:01> Related Data Home Medications: Home Medications ?Medication ?Instructions ?Recorded ?Confirmed ?Last Taken ?Type albuterol sulfate 2.5 mg/3 mL 2.5 mg inhalation Q4-6H PRN 05/02/25 05/02/25 Unknown History (0.083 %) solution for nebulization shortness of breath or wheezing cyclobenzaprine 7.5 mg tablet 7.5 mg PO Q8H PRN muscle pain 05/02/25 05/02/25 Unknown History hydroxyzine HCl 25 mg tablet 25 mg PO Q12H PRN anxiety 05/02/25 05/02/25 Unknown History lidocaine 5 % topical patch 1 patch topical Q24H PRN pain 05/02/25 05/02/25 04/29/25 History medroxyprogesterone 150 mg/mL 150 mg IM [id number] 05/02/25 05/02/25 Unknown History intramuscular syringe methocarbamol 750 mg tablet 750 mg PO Q6H PRN pain 05/02/25 05/02/25 Unknown History <Meredith Gomes PA-C - Last Filed: 05/02/25 00:01> Allergies/Adverse Reactions: Allergies Allergy/AdvReac Type Severity Reaction Status Date / Time Penicillins Allergy Unknown UNKNOWN Verified 05/02/25 00:01 REACTION lamotrigine Allergy Hives Verified 05/02/25 00:01 latex Allergy Hives Verified 05/02/25 00:01 <Meredith Gomes PA-C - Last Filed: 05/02/25 00:01> Review of Systems Review of Systems: All systems reviewed & are unremarkable except as noted in HPI and below <Meredith Gomes PA-C - Last Filed: 05/02/25 00:01> [facility] Past Medical History Medical History: Medical History Asthma <Meredith Gomes PA-C - Last Filed: 05/02/25 00:01> Family History Family History: Family History (Updated 05/02/25 @ 00:04 by Twyla Rubi RN) Grandparent History of blood clots Chronic obstructive pulmonary disease Colon cancer Congestive heart failure Diabetes mellitus Hypertension Other Cerebrovascular accident Mother Diabetes mellitus Hypertension <Meredith Gomes PA-C - Last Filed: 05/02/25 00:01> Social History Social History: Social History Smoking status: Current every day smoker Tobacco type: e-cigarettes/vaping Second hand tobacco smoke exposure: Yes Alcohol intake: never Substance use: current Substance use type: marijuana Lack of Transportation: No Lack of Food: Never True Current Housing: I Have Housing Concerned About Future Housing: No Difficulty Paying Gas/Electric Bills: No Difficulty Paying for Meds: No Currently Unemployed: No Education: Trade/Vocational Certificate Difficulty w/ Childcare or Family Care: No Living arrangements: with family Gender identity (if verbalized by the patient): Female Spiritual care concerns: No <MILLER Camacho Last Filed: 05/02/25 00:01> Exam Narrative: GENERAL: Well-appearing, well-nourished, and in no acute distress. HEAD: Normocephalic, atraumatic. EYES: EOMI. ENT: Nares clear, no rhinorrhea or epistaxis. Mucous membranes moist. Oropharynx without tonsillar hypertrophy exudate or other lesions. Bilateral TMs pearly herring non-bulging NECK: Supple. No adenopathy or masses CHEST: Clear to auscultation. No respiratory distress. No wheezes rales or rhonchi HEART: Regular rate and rhythm. No murmur heard. Normal peripheral pulses. EXTREMITIES: Normal range of motion. No edema. SKIN: Warm, dry, no rash. NEURO: No focal deficits. Alert and oriented x3. 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 I performed all aspects of the MDM as documented. <Akash Tyler MD - Last Filed: 05/02/25 06:22> Consultations Consultation #1: spoke with general surgery who will consult <Meredith Gomes PA-C - Last Filed: 05/02/25 00:01> Date: 05/01/25 <Meredith Gomes PA-C - Last Filed: 05/02/25 00:01> Consultation #2: spoke with hospitalist about patient and workup who accepts admission <Meredith Gomes PA-C - Last Filed: 05/02/25 00:01> Date: 05/01/25 <Meredith Gomes PA-C - Last Filed: 05/02/25 00:01> Vital Signs Vital signs: Vital Signs Temperature 36.6 C 05/01/25 16:43 Pulse Rate 100 05/01/25 16:43 Respiratory Rate 18 05/01/25 16:43 Blood Pressure 118/77 05/01/25 16:43 Pulse Oximetry 100 05/01/25 16:43 Oxygen Delivery Room Air 05/01/25 16:43 Temperature 37.1 C 05/02/25 06:00 Pulse Rate 81 05/02/25 06:00 Respiratory Rate 18 05/02/25 06:00 Blood Pressure 91/63 L 05/02/25 06:00 Pulse Oximetry 92 05/02/25 06:00 Oxygen Delivery Nasal Cannula 05/01/25 22:52 Oxygen Flow Rate 2 05/01/25 22:52 <Meredith Gomes PA-C - Last Filed: 05/02/25 00:01> Vital Signs Temperature 36.6 C 05/01/25 16:43 Pulse Rate 100 05/01/25 16:43 Respiratory Rate 18 05/01/25 16:43 Blood Pressure 118/77 05/01/25 16:43 Pulse Oximetry 100 05/01/25 16:43 Oxygen Delivery Room Air 05/01/25 16:43 Temperature 37.1 C 05/02/25 06:00 Pulse Rate 81 05/02/25 06:00 Respiratory Rate 18 05/02/25 06:00 Blood Pressure 91/63 L 05/02/25 06:00 Pulse Oximetry 92 05/02/25 06:00 Oxygen Delivery Nasal Cannula 05/01/25 22:52 Oxygen Flow Rate 2 05/01/25 22:52 <Akash Tyler MD - Last Filed: 05/02/25 06:22> MDM - SOB/Dyspnea MDM Narrative Medical decision making narrative: Patient presents to the emergency department for right-sided chest pain, shortness of breath. Recent pneumothorax requiring a chest tube a couple of weeks prior. She is afebrile and nontoxic appearing. Her vitals are stable. CBC with mild leukocytosis to 11. Metabolic panel without concerning findings. Influenza, RSV and COVID screens are negative. D-dimer elevated, CTA of the chest obtained. Shows small right apical pneumothorax. Patient placed on oxygen. Will be admitted for observation <Meredith Gomes PA-C - Last Filed: 05/02/25 00:01> Differential Diagnosis Differential diagnosis: Likely pulmonary embolism and other (pneumothorax) <Meredith Gomes PA-C - Last Filed: 05/02/25 00:01> Lab Data Attestation: I reviewed the patient's lab results. <Meredith Gomes PA-C - Last Filed: 05/02/25 00:01> Result diagrams: 05/01/25 17:32 05/01/25 17:32 <MILLER Camacho Last Filed: 05/02/25 00:01> Labs: Lab Results 05/01/25 05/01/25 05/01/25 Range/Units 17:32 17:36 17:48 WBC 11.0 H (4.5-10.0) K/mm3 RBC 3.77 L (4.2-5.4) M/mm3 Hgb 10.6 L (12.0-15.0) g/dL Hct 33.2 L (37.0-47.0) % MCV 88.1 (80-100) fl MCH 28.1 (26-34) pg MCHC 31.9 L (32-36) g/dl RDW 13.7 (11.5-14.5) % Plt Count 369 (150-375) k/mm3 MPV 9.7 (7.4-10.4) fl Immature Gran % (Auto) 0.3 (0-0.5) % Neut % (Auto) 75.7 H (45.5-73.1) % Lymph % (Auto) 15.7 L (18.3-44.2) % [place] % (Auto) 7.4 (2.6-8.5) % Eos % (Auto) 0.4 (0-4.4) % Baso % (Auto) 0.5 (0.2-1.2) % Lymph # (Auto) 1.73 (0.9-3.2) K/mm3 [place] # (Auto) 0.8 H (0.1-0.6) K/mm3 Eos # (Auto) 0.0 (0-0.3) K/mm3 Baso # (Auto) 0.1 (0.0-0.1) K/mm3 Abs Immat Gran (auto) 0.03 (0.00-0.031) K/mm3 Absolute Neuts (auto) 8.3 H (1.3-6.7) K/mm3 Absolute Nucleated RBC 0.000 (0.0-0.012) K/mm3 Nucleated RBC % 0.0 (0.0-0.2) % PT 14.4 (11.1-14.7) Seconds INR 1.1 APTT 25.9 (22.3-36.8) Seconds D-Dimer 0.81 H (<0.48) ug/mL Sodium 133 L (137-145) mmol/L Potassium 3.8 (3.4-5.0) mmol/L Chloride 102 (98-107) mmol/L Carbon Dioxide 24 (22-30) mmol/L Anion Gap 7 (4-12) mmol/L BUN 9 (7-17) mg/dL Creatinine 0.64 L (0.7-1.0) mg/dL Estim Creat Clear Calc 85 ml/min Estimated GFR > 60 (59 - ) Glucose 93 (65-110) mg/dL Calcium 9.1 (8.4-10.2) mg/dL Total Bilirubin 0.5 (0.2-1.3) mg/dL AST 33 (14-36) U/L ALT 15 (6-35) U/L Alkaline Phosphatase 52 (38-126) U/L Total Protein 7.6 (6.3-8.2) g/dL Albumin 4.5 (3.5-5.1) g/dL POC Urine HCG, Qual Negative (Negative) Influenza A (RT-PCR) Negative (Negative) Influenza B (RT-PCR) Negative (Negative) RSV (RT-PCR) Negative (Negative) SARS-CoV-2 RNA (RT-PCR) Negative (Negative) <Meredith Gomes PA-C - Last Filed: 05/02/25 00:01> Lab Results 05/01/25 05/01/25 05/01/25 Range/Units 17:32 17:36 17:48 WBC 11.0 H (4.5-10.0) K/mm3 RBC 3.77 L (4.2-5.4) M/mm3 Hgb 10.6 L (12.0-15.0) g/dL Hct 33.2 L (37.0-47.0) % MCV 88.1 (80-100) fl MCH 28.1 (26-34) pg MCHC 31.9 L (32-36) g/dl RDW 13.7 (11.5-14.5) % Plt Count 369 (150-375) k/mm3 MPV 9.7 (7.4-10.4) fl Immature Gran % (Auto) 0.3 (0-0.5) % Neut % (Auto) 75.7 H (45.5-73.1) % Lymph % (Auto) 15.7 L (18.3-44.2) % [place] % (Auto) 7.4 (2.6-8.5) % Eos % (Auto) 0.4 (0-4.4) % Baso % (Auto) 0.5 (0.2-1.2) % Lymph # (Auto) 1.73 (0.9-3.2) K/mm3 [place] # (Auto) 0.8 H (0.1-0.6) K/mm3 Eos # (Auto) 0.0 (0-0.3) K/mm3 Baso # (Auto) 0.1 (0.0-0.1) K/mm3 Abs Immat Gran (auto) 0.03 (0.00-0.031) K/mm3 Absolute Neuts (auto) 8.3 H (1.3-6.7) K/mm3 Absolute Nucleated RBC 0.000 (0.0-0.012) K/mm3 Nucleated RBC % 0.0 (0.0-0.2) % PT 14.4 (11.1-14.7) Seconds INR 1.1 APTT 25.9 (22.3-36.8) Seconds D-Dimer 0.81 H (<0.48) ug/mL Sodium 133 L (137-145) mmol/L Potassium 3.8 (3.4-5.0) mmol/L Chloride 102 (98-107) mmol/L Carbon Dioxide 24 (22-30) mmol/L Anion Gap 7 (4-12) mmol/L BUN 9 (7-17) mg/dL Creatinine 0.64 L (0.7-1.0) mg/dL Estim Creat Clear Calc 85 ml/min Estimated GFR > 60 (59 - ) Glucose 93 (65-110) mg/dL Calcium 9.1 (8.4-10.2) mg/dL Total Bilirubin 0.5 (0.2-1.3) mg/dL AST 33 (14-36) U/L ALT 15 (6-35) U/L Alkaline Phosphatase 52 (38-126) U/L Total Protein 7.6 (6.3-8.2) g/dL Albumin 4.5 (3.5-5.1) g/dL POC Urine HCG, Qual Negative (Negative) Influenza A (RT-PCR) Negative (Negative) Influenza B (RT-PCR) Negative (Negative) RSV (RT-PCR) Negative (Negative) SARS-CoV-2 RNA (RT-PCR) Negative (Negative) <Akash Tyler MD - Last Filed: 05/02/25 06:22> Imaging Data Radiologist's impression: ITS Impressions Chest X-Ray 05/01/25 17:27 IMPRESSION: No acute lung findings.] [ ] Chest CTA 05/01/25 21:03 IMPRESSION: 1. Tiny right apical pneumothorax. <Meredith Gomes PA-C - Last Filed: 05/02/25 00:01> ECG Data EKG #1: ECG completion date: 05/01/25 <Meredith Gomes PA-C - Last Filed: 05/02/25 00:01> EKG Interpretation: tachycardia, sinus rhythm, no ST changes and normal QT <Meredith Gomes PA-C - Last Filed: 05/02/25 00:01> Critical Care Time Critical Care Time Critical Care Time: No <Meredith Gomes PA-C - Last Filed: 05/02/25 00:01> Discharge Plan Discharge Clinical Impression: Pneumothorax Qualifiers: Pneumothorax type: unspecified pneumothorax Qualified Code(s): J93.9 - Pneumothorax, unspecified <Meredith Gomes PA-C - Last Filed: 05/02/25 00:01> Patient Disposition: Still a Patient <Meredith Gomes PA-C - Last Filed: 05/02/25 00:01> Condition: Stable <Meredith Gomes PA-C - Last Filed: 05/02/25 00:01>
[2025-05-01] MEDS: ACETAMINOPHEN 500 MG TABLET 1000 MG PO (17:47)
[2025-05-01 17:48] LABS: Hematocrit 33.2 % (37.0-47.0); Hemoglobin 10.6 g/dL (12.0-15.0); Immature Granulocyte Percent A 0.3 % (0-0.5); Lymphocytes Absolute Auto 1.73 K/mm3 (0.9-3.2); Mean Corpuscular HGB Conc 31.9 g/dl (32-36); Mean Corpuscular Hemoglobin 28.1 pg (26-34); Mean Corpuscular Volume 88.1 fl (80-100); Nucleated Red Blood Cells Absolute Auto 0.000 K/mm3 (0.0-0.012); Nucleated Red Blood Cells Perc 0.0 % (0.0-0.2); Platelet Count Result 369 k/mm3 (150-375); Red Blood Count 3.77 M/mm3 (4.2-5.4); White Blood Count 11.0 K/mm3 (4.5-10.0)
[2025-05-01 17:49] LABS: BEDSIDEPREGUCG Negative (Negative)
[2025-05-01 18:00] LABS: Alanine Aminotransferase 15 U/L (6-35); Albumin Level 4.5 g/dL (3.5-5.1); Alkaline Phosphatase 52 U/L (38-126); Anion Gap 7 mmol/L (4-12); Aspartate Amino Transferase 33 U/L (14-36); Bilirubin,Total 0.5 mg/dL (0.2-1.3); Blood Urea Nitrogen 9 mg/dL (7-17); Calcium 9.1 mg/dL (8.4-10.2); Carbon Dioxide 24 mmol/L (22-30); Chloride 102 mmol/L (98-107); Estimated CRCL calculation 85 ml/min; Estimated Glomerular Filt Rate > 60; Glucose 93 mg/dL (65-110); Potassium 3.8 mmol/L (3.4-5.0); Sodium 133 mmol/L (137-145); Total Protein 7.6 g/dL (6.3-8.2)
[2025-05-01 18:12] LABS: INR 1.1; Partial Thromboplastin Time 25.9 Seconds (22.3-36.8); Prothrombin Time 14.4 Seconds (11.1-14.7)
[2025-05-01 18:25] LABS: Influenza A QL RT-PCR Negative (Negative); Influenza B QL RT-PCR Negative (Negative); RSV RNA, RT-PCR Negative (Negative); SARS-CoV-2 RNA PCR Negative (Negative)
[2025-05-01] MEDS: KETOROLAC 15 MG/ML VIAL (*BKC) IV PUSH (20:05)
[2025-05-01] MEDS: ONDANSETRON INJ 4 MG/2 ML VIAL IV PUSH (20:52)
--- NOTE | 2025-05-01 23:54 | ADMGEN ---
This patient, Kathy Valderrama, was admitted to Medical Room 348-01. Patient/family oriented to hospital policies and general routines including ID bracelet, bed and alarms, visiting hours, pain management, procedures, bathroom and other care routines, personal items, smoking policy, room service/diet, and visiting hours. Information on how to activate the Rapid Response Team has been discussed. Patient/Family are encouraged to report perceived risks to care and to ask questions if they do not understand what they are told or what they should do.
[2025-05-02] VITALS (12 sets, daily range): BP systolic 91–124; BP diastolic 63–82; PULSE 74–125; RESP 18; TEMP 36.6–37.2; O2SAT 92–100
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
[2025-05-02] MEDS: ACETAMINOPHEN 500 MG TABLET 1000 MG PO ×2 (00:56→06:59)
[2025-05-02] MEDS: LIDOCAINE 5% PATCH 1 PATCH TRANSDERM (08:34)
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
[2025-05-02] MEDS: BENZOCAINE/MENTHOL (*BKC) 18 EA LOZENGE 1 LOZENGE PO ×3 (13:03→21:06)
[2025-05-02] MEDS: KETOROLAC 15 MG/ML VIAL (*BKC) IV PUSH ×2 (13:48→20:49)
[2025-05-02 14:17] LABS: Hematocrit 37.2 % (37.0-47.0); Hemoglobin 11.8 g/dL (12.0-15.0); Immature Granulocyte Percent A 0.4 % (0-0.5); Lymphocytes Absolute Auto 1.29 K/mm3 (0.9-3.2); Mean Corpuscular HGB Conc 31.7 g/dl (32-36); Mean Corpuscular Hemoglobin 28.0 pg (26-34); Mean Corpuscular Volume 88.2 fl (80-100); Nucleated Red Blood Cells Absolute Auto 0.000 K/mm3 (0.0-0.012); Nucleated Red Blood Cells Perc 0.0 % (0.0-0.2); Platelet Count Result 356 k/mm3 (150-375); Red Blood Count 4.22 M/mm3 (4.2-5.4); White Blood Count 14.8 K/mm3 (4.5-10.0)
[2025-05-02 14:32] LABS: Strep Group A RT-PCR NOT DETECTED (Negative)
[2025-05-02 14:33] LABS: Alanine Aminotransferase 19 U/L (6-35); Albumin Level 5.1 g/dL (3.5-5.1); Alkaline Phosphatase 65 U/L (38-126); Anion Gap 13 mmol/L (4-12); Aspartate Amino Transferase 41 U/L (14-36); Bilirubin,Total 0.6 mg/dL (0.2-1.3); Blood Urea Nitrogen 9 mg/dL (7-17); Calcium 9.5 mg/dL (8.4-10.2); Carbon Dioxide 23 mmol/L (22-30); Chloride 102 mmol/L (98-107); Estimated CRCL calculation 85 ml/min; Estimated Glomerular Filt Rate > 60; Glucose 112 mg/dL (65-110); Potassium 4.0 mmol/L (3.4-5.0); Sodium 138 mmol/L (137-145); Total Protein 9.0 g/dL (6.3-8.2)
[2025-05-02] MEDS: LIDOCAINE 5% PATCH 2 PATCH TRANSDERM (15:46)
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
[2025-05-02] MEDS: HYDROcodone/acetaminophen (*CRX) 5-325 MG TABLET 1 TAB PO (21:39)
[2025-05-03] VITALS: PULSE 88
[2025-05-03 04:00] VITALS: PULSE 120
[2025-05-03 05:53] LABS: Hematocrit 33.8 % (37.0-47.0); Hemoglobin 10.9 g/dL (12.0-15.0); Immature Granulocyte Percent A 0.3 % (0-0.5); Lymphocytes Absolute Auto 1.37 K/mm3 (0.9-3.2); Mean Corpuscular HGB Conc 32.2 g/dl (32-36); Mean Corpuscular Hemoglobin 28.2 pg (26-34); Mean Corpuscular Volume 87.3 fl (80-100); Nucleated Red Blood Cells Absolute Auto 0.000 K/mm3 (0.0-0.012); Nucleated Red Blood Cells Perc 0.0 % (0.0-0.2); Platelet Count Result 313 k/mm3 (150-375); Red Blood Count 3.87 M/mm3 (4.2-5.4); White Blood Count 10.3 K/mm3 (4.5-10.0)
[2025-05-03 06:00] VITALS: BP 107/69; PULSE 80; RESP 16; TEMP 36.3; O2SAT 99
[2025-05-03] MEDS: NICOTINE (*PBKC) 7 MG PATCH 1 PATCH TRANSDERM (06:00)
[2025-05-03 06:03] LABS: Alanine Aminotransferase 12 U/L (6-35); Albumin Level 4.1 g/dL (3.5-5.1); Alkaline Phosphatase 59 U/L (38-126); Anion Gap 8 mmol/L (4-12); Aspartate Amino Transferase 26 U/L (14-36); Bilirubin,Total 0.3 mg/dL (0.2-1.3); Blood Urea Nitrogen 10 mg/dL (7-17); Calcium 9.0 mg/dL (8.4-10.2); Carbon Dioxide 24 mmol/L (22-30); Chloride 104 mmol/L (98-107); Estimated CRCL calculation 90 ml/min; Estimated Glomerular Filt Rate > 60; Glucose 91 mg/dL (65-110); Potassium 3.8 mmol/L (3.4-5.0); Sodium 136 mmol/L (137-145); Total Protein 7.3 g/dL (6.3-8.2)
[2025-05-03] MEDS: BENZOCAINE/MENTHOL (*BKC) 18 EA LOZENGE 1 LOZENGE PO ×2 (06:05→08:41)
[2025-05-03] MEDS: KETOROLAC 15 MG/ML VIAL (*BKC) IV PUSH (06:06)
[2025-05-03 08:05] VITALS: PULSE 87
[2025-05-03] MEDS: LIDOCAINE 5% PATCH 1 PATCH TRANSDERM (08:35)
[2025-05-03] MEDS: LIDOCAINE 5% PATCH 2 PATCH TRANSDERM (08:35)
[2025-05-03 11:34] VITALS: BMI 16.8
[2025-05-03 12:06] VITALS: PULSE 92
[2025-05-03 14:00] VITALS: BP 120/86; PULSE 112; RESP 16; TEMP 37.2; O2SAT 100
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
[2025-05-03] MEDS: ACETAMINOPHEN 500 MG TABLET 1000 MG PO (15:17)
== END 2025-05-03 18:41 | disposition home or self-care (01) ==
LOC: ANHED 17:34 → ANH3MED 23:55 → ANH3MEDSUR 05-04 07:06
PROVIDERS: Emergency Medicine; Admitting Provider General Practice; Emergency Provider Physician Assistant; Visit Provider Student in an Organized Health Care Education/Training Program
DX: J93.9 Pneumothorax, unspecified (principal); J06.9 Acute upper respiratory infection, unspecified; D72.829 Elevated white blood cell count, unspecified; J45.909 Unspecified asthma, uncomplicated; N80.9 Endometriosis, unspecified; Z83.3 Family history of diabetes mellitus; Z82.49 Family history of ischemic heart disease and other diseases of the circulatory system; Z80.0 Family history of malignant neoplasm of digestive organs; F17.290 Nicotine dependence, other tobacco product, uncomplicated; F12.90 Cannabis use, unspecified, uncomplicated; Z20.822 Contact with and (suspected) exposure to COVID-19
CPT/HCPCS: 36415; 71046; 71275; 74176; 80053; 81025; 83605; 85025; 85380; 85610; 85730; 87040; 87637; 87651; 93005; 96372; 96374; 96375; 96376; 99285; A9270; G0378; G0379; J1644; J1885; J2405; Q9967